=== PATIENT | female | born 1940 | race Caucasian/White ===

== ENCOUNTER 2017-01-13 11:18 | Inpatient (IN) | payer OTHER, MEDICAID ==
[~2017-01-13] VITALS: Ht 162.5 cm; Wt 86.0 kg
[~2017-01-13 11:18] MED LIST: ANTIVERT25 MG PO; COMPAZINE10 MG PO; CORDROL20 MG PO; GLUCOPHAGE850 MG PO; GLYBURIDE2.5 MG PO; LEVAQUIN750 MG PO; LEVOFLOXACIN500 MG PO; LISINOPRIL5 MG PO
[2017-01-13 11:33] VITALS: BP 150/60
[2017-01-13 12:11] LABS: BILIRUBIN NEGATIVE (NEGATIVE); BLOOD NEGATIVE (NEGATIVE); CLARITY CLEAR (CLEAR); COLOR YELLOW (YELLOW); GLUCOSE NEGATIVE (NEGATIVE); KETONE NEGATIVE (NEGATIVE); LEUKO ESTERASE NEGATIVE (NEGATIVE); NITRITE NEGATIVE (NEGATIVE); PH 7.5 (5.0-9.0); SPECIFIC GRAVITY 1.015 (1.005-1.030)
[2017-01-13 12:22] LABS: BACTERIA TRACE; WBC 0-2 wbc/hpf (0-5)
[2017-01-13 12:35] LABS: BASO # 0.1 10*3/uL (0.0-0.1); BASO % 0.8 % (0.0-1.0); EOS # 0.1 10*3/uL (0.0-0.4); EOS % 1.2 % (1.0-4.0); LYMPH # 1.7 10*3/uL (1.3-4.4); LYMPH % 26.1 % (27.0-41.0); MEAN CELL VOLUME 79.6 fl (81.0-99.0); MEAN CORPUSCULAR HGB 24.3 pg (27.0-31.0); MEAN CORPUSCULAR HGB CONC 30.6 g/dl (33.0-37.0); MEAN PLATELET VOLUME 10.9 fl (9.6-12.3); MONO # 0.8 10*3/uL (0.1-1.0); NEUT # 3.8 10*3/uL (2.3-7.9); NEUT % 59.6 % (47.0-73.0); PLATELET COUNT AUTOMATED 255 10*3/uL (130-400); RED BLOOD COUNT 4.52 10*6/uL (4.10-5.10); RED CELL DISTRI WIDTH 17.1 % (0-14.5); WHITE BLOOD COUNT 6.4 10*3/uL (4.8-10.8)
[2017-01-13 12:45] LABS: ACT PARTIAL THROMBO TIME 24.5 SECONDS (20.8-31.5); INTERNATIONAL NORM RATIO 1.1 (2.0-3.5)
[2017-01-13 12:53] LABS: ALBUMIN 3.4 gm/dl (3.1-4.5); ALKALINE PHOSPHATASE 85 U/L (45-117); BUN 15 mg/dl (7-24); CHLORIDE 108 mmol/L (98-107); CREATININE 0.51 mg/dL (0.55-1.02); POTASSIUM 4.1 mmol/L (3.5-5.1); SGOT/AST 13 IU/L (3-35); SGPT/ALT 15 U/L (12-78); SODIUM 143 mmol/L (136-145)
[2017-01-13 12:54] LABS: TROPONIN I < 0.015 ng/ml (<0.045)
--- NOTE | 2017-01-13 13:00 | NUR ---
PT IN ROOM NO DISTRESS NOTED CALL LIGHT IN REACH
--- NOTE | 2017-01-13 13:48 | NUR ---
PT RESTING IN ROOM NO DISTRESS NOTED CALL LIGHT IN REACH
[2017-01-13] MEDS ORDERED: Meclizine25 MG PO (14:37)
[2017-01-13] MEDS ORDERED: Zofran4 MG PO (14:37)
--- NOTE | 2017-01-13 14:48 | NUR ---
RN TYPING DISCHARGE PAPERS DAUGHTER TO DESK AND STATES "SHE IS REALLY NAUSEATED AND DOESN'T FEEL GOOD". DR HEREDIA NOTIFED.
--- NOTE | 2017-01-13 14:48 | NUR ---
PT DAUGHTER IN ROOM WHEN I WAS GETTING READY TO DISCHARGE DAUGHTER CONCERNED PT IS STILL C/O DIZZINESS AND NAUSESA DR HEREDIA NOTIFIED
[2017-01-13 16:00] VITALS: BP 134/60
--- NOTE | 2017-01-13 16:45 | NUR ---
ORTHOSTATICS NEGATIVE
--- NOTE | 2017-01-13 17:17 | NUR ---
Time: 1649 A 76 year old FEMALE admitted to 5E under services of DR. OSWALDO DO,[facility]. Pt. arrived via wheel chair from ER. Chief complaint: DIZZINESS. AMINATA CINTRON
--- NOTE | 2017-01-13 17:22 | NUR ---
PATIENT AWARE OF HER MEDICATIONS AND COULD VERIFY MEDS WITH RN.
[2017-01-13 20:00] VITALS: BP 139/63
[2017-01-14] VITALS: BP 140/72
--- NOTE | 2017-01-14 00:37 | NUR ---
24 HR chart check completed.
[2017-01-14 06:45] LABS: BASO % 0.4 % (0.0-1.0); EOS # 0.3 10*3/uL (0.0-0.4); EOS % 3.5 % (1.0-4.0); HEMATOCRIT 35.9 % (37.0-47.0); HEMOGLOBIN 10.9 g/dl (12.0-16.0); LYMPH # 2.4 10*3/uL (1.3-4.4); LYMPH % 30.3 % (27.0-41.0); MEAN CELL VOLUME 79.4 fl (81.0-99.0); MEAN CORPUSCULAR HGB 24.1 pg (27.0-31.0); MEAN CORPUSCULAR HGB CONC 30.4 g/dl (33.0-37.0); MEAN PLATELET VOLUME 11.3 fl (9.6-12.3); MONO # 0.9 10*3/uL (0.1-1.0); MONO % 10.8 % (3.0-9.0); NEUT # 4.4 10*3/uL (2.3-7.9); NEUT % 54.7 % (47.0-73.0); PLATELET COUNT AUTOMATED 243 10*3/uL (130-400); RED BLOOD COUNT 4.52 10*6/uL (4.10-5.10); RED CELL DISTRI WIDTH 17.2 % (0-14.5)
[2017-01-14 07:18] LABS: ACT PARTIAL THROMBO TIME 24.8 SECONDS (20.8-31.5); INTERNATIONAL NORM RATIO 1.1 (2.0-3.5)
[2017-01-14 07:26] LABS: CHLORIDE 107 mmol/L (98-107); SODIUM 141 mmol/L (136-145)
[2017-01-14 07:42] LABS: BUN 13 mg/dl (7-24); CHOLESTEROL 155 mg/dL (<200); CREATININE 0.47 mg/dL (0.55-1.02); FREE T4 1.23 ng/dl (0.76-1.46); HDL CHOLESTEROL 56 mg/dl (40-60); IRON 37 ug/dL (50-170); LDL CHOLESTEROL 85 mg/dL (9-159); PHOSPHOROUS 3.4 mg/dL (2.5-4.9); THYROID STIM HORMONE (HS) 0.669 uIU/ml (0.358-4.75); TOTAL IRON BINDING CAPACITY 349 ug/dl (250-450); TRIGLYCERIDES 71 mg/dl (<150); VLDL CHOLESTEROL 14 mg/dL (6-40)
[2017-01-14 08:00] VITALS: BP 149/60
[2017-01-14 08:05] LABS: VITAMIN D, 25-HYDROXY 12.8 ng/mL (30-100)
--- NOTE | 2017-01-14 08:30 | NUR ---
Engraver Lettering in to talk to patient. Patient states lives at HOME ALONE IN [place] with NOONE. There are 0 steps in the home. Physician: DR CHACON Pharmacy: [facility] [place] health services: NONE Patient's level of ADLs: MINIMAL ASSIST Patient has working utilities: YES DME: NONE Follow-up physician's appointment after d/c: PREFERS TO MAKE HER OWN APPT Does patient want to access PORTAL?: Discharge plan HOME. JEWELLIONEL STATES DAUGHTER LIVES NEAR BY AND HELPS WHEN NEEDED. CHECKS ON HER FREQ
--- NOTE | 2017-01-14 10:21 | NUR ---
PHYSICAL THERAPY Patient off floor at testing. Aleshia Arenas,PT
--- NOTE | 2017-01-14 10:40 | NUR ---
Patient not available for Occupational Therapy evaluation as she was getting an ultrasound. OTR will recheck at a later time. Barbra Whaley OTR/zack
--- NOTE | 2017-01-14 11:31 | NUR ---
PHYSICAL THERAPY PAtient evaluated on 5, full evaluation to follow. Continue with PT as pr plan of care with fall, vertigo and acute debility precautions. Home with family is patients preference. If home- Recommend 05/10 family assist and home health Rn and PT with vestibular rehab prn. PAtient is moderate complexity via chart review, tests and evaluation: [id number]. Multiple tests pending currently. Thank you for this referral. Aleshia Arenas,PT
[2017-01-14 12:00] VITALS: BP 152/72
[2017-01-14 16:00] VITALS: BP 158/60
[2017-01-14 20:00] VITALS: BP 158/67
[2017-01-15] VITALS: BP 121/48
--- NOTE | 2017-01-15 00:17 | NUR ---
24 HR chart check completed.
[2017-01-15 06:32] LABS: BASO % 0.5 % (0.0-1.0); EOS # 0.3 10*3/uL (0.0-0.4); EOS % 3.6 % (1.0-4.0); HEMATOCRIT 35.6 % (37.0-47.0); HEMOGLOBIN 10.9 g/dl (12.0-16.0); LYMPH # 2.5 10*3/uL (1.3-4.4); LYMPH % 32.7 % (27.0-41.0); MEAN CELL VOLUME 79.1 fl (81.0-99.0); MEAN CORPUSCULAR HGB 24.2 pg (27.0-31.0); MEAN CORPUSCULAR HGB CONC 30.6 g/dl (33.0-37.0); MEAN PLATELET VOLUME 11.4 fl (9.6-12.3); MONO # 0.9 10*3/uL (0.1-1.0); MONO % 11.4 % (3.0-9.0); NEUT % 51.4 % (47.0-73.0); PLATELET COUNT AUTOMATED 250 10*3/uL (130-400); RED CELL DISTRI WIDTH 17.2 % (0-14.5); WHITE BLOOD COUNT 7.7 10*3/uL (4.8-10.8)
[2017-01-15 07:00] LABS: BUN 13 mg/dl (7-24); CHLORIDE 104 mmol/L (98-107); CREATININE 0.49 mg/dL (0.55-1.02); POTASSIUM 3.7 mmol/L (3.5-5.1); SODIUM 141 mmol/L (136-145)
[2017-01-15 08:00] VITALS: BP 130/62
--- NOTE | 2017-01-15 08:13 | NUR ---
PHYSICAL THERAPY seen this AM 1:1 for her therapy treatment. Transfer supine/sit independent, sitting balance X 6 min and just very slight vertigo and cleared. Sit/stand and standing balance CG X 1, no LOB with improvement in vertigo today she said. Followed by gait 125' X 1, CG X 1, one stop/start gait with no LOB. Pt up in her bedside chair, call light. SUE MOSES DINING ROOM CASHIER.
--- NOTE | 2017-01-15 08:15 | NUR ---
MEDIA LAW FACULTY MEMBER VS. PT DOES NOT WANT VNA AND PT AT HOME.
--- NOTE | 2017-01-15 10:48 | NUR ---
PT BGM 157 BUT INSULIN WAS HELD FOR HX OF HYPOGLYCEMIA AND NO HX OF EVER TAKING INSULIN. WILL RECHECK BGM AT 1600 AND CONTINUE WITH SLIDING SCALE IF APPROPRIATE.
[2017-01-15 12:00] VITALS: BP 153/61
[2017-01-15] MEDS ORDERED: GLUCOPHAGE500 MG PO (12:29)
--- NOTE | 2017-01-15 12:40 | NUR ---
PATIENT SEEN 1:1 25 MINUTES THIS DATE. IDENTIFIED PATIENT BY NAME AND DATE OF . PATIENT IN BED UPON ARRIVAL. COMPLETED SUPINE TO SIT EOB SUPERVISION AND MIN VERBAL CUES COMPLETE SLOWLY. PATIENT COMPLETED SIT TO STAND FROM BED CGA AND AMBULATION CGA TO BATHROOM X 2 CGA WITH NO C/O DIZZINESS. COMPLETED STANDING TOLERANCE CGA 2 MINUTES X 1 AND 3 MINUTES X SECOND STAND WITH PATIENT C/O OF SLIGHT DIZZINESS WHEN TURNING HEAD TO THE RIGHT AND DISSIPATION OF DIZZINESS WITH SEATED RB. PATIENT COMPLETED LB DRESSING TASK SEATED EOB MIN A DON NONSLIP SOCKS THIS AND EDUCATION PROPER FOOT WEAR FOR FALL PREVENTION. EDUCATED PATIENT PACING SELF AND PURSE LIP BREATHING WITH BENDING FORWARD REACH B FEET WITH NO C/O DIZZINESS. COMPLETED AMBULATION SHORT DISTANCE TO RECLINER CGA WITH MIN VERBAL CUES PACE SELF. RECOMMENDED IT NETWORK ARCHITECT FOR USE TO P/U ITEMS FROM FLOOR FOR FALL PREVENTION WITH PATIENT VERBALIZING THAT SHE HAS A IT NETWORK ARCHITECT AT HOME. EILEEN FISCHER
--- NOTE | 2017-01-15 15:06 | NUR ---
PHYSICAL THERAPY CO-SIGN I approve of the Phyical Therapy notes written above. HALINA SPENCER PT
--- NOTE | 2017-01-15 15:22 | NUR ---
pt being dc to home. all papers signed for dc. iv access removed. mon removed. waiting for ride. no other concerns at this time.
--- NOTE | 2017-01-15 15:23 | NUR ---
Discharge instructions reviewed with patient/family. Patient receptive and verbalizes understanding. Follow-up care arranged. Written instructions given to patient/family. MANDI BIRCH
--- NOTE | 2017-01-18 08:29 | NUR ---
OCCUPATIONAL THERAPY CO-SIGN I approve of the Occupational Therapy notes written above. OSVALDO YAN OTR/[place]
== END 2017-01-15 16:46 | disposition home or self-care (01) | DRG 149 ==
LOC: ED 11:18 → 5E 15:21 → EDHOLD 15:21 → 5E 15:48
PROVIDERS: Emergency Medicine; Internal Medicine; ADMIT Internal Medicine
DX: H81.10 Benign paroxysmal vertigo, unspecified ear (principal); E87.8 Other disorders of electrolyte and fluid balance, not elsewhere classified; E11.9 Type 2 diabetes mellitus without complications; E66.01 Morbid (severe) obesity due to excess calories; D50.9 Iron deficiency anemia, unspecified; E53.8 Deficiency of other specified B group vitamins; R09.89 Other specified symptoms and signs involving the circulatory and respiratory systems; I10 Essential (primary) hypertension; E55.9 Vitamin D deficiency, unspecified; Z79.84 Long term (current) use of oral hypoglycemic drugs; Z79.899 Other long term (current) drug therapy; Z88.1 Allergy status to other antibiotic agents; Z91.040 Latex allergy status; Z91.013 Allergy to seafood; Z68.32 Body mass index [BMI] 32.0-32.9, adult

== ENCOUNTER → 2017-07-09 | Outpatient (CLI) | payer OTHER, MEDICAID ==
[~2017-07-09] MED LIST changes: +GLUCOPHAGE500 MG PO; +Meclizine25 MG PO; +Zofran4 MG PO
== END | disposition home or self-care (01) ==
LOC: CARD 08:13
DX: R01.1 Cardiac murmur, unspecified (principal)

== ENCOUNTER 2017-08-28 11:50 | Emergency (ER) | payer OTHER, MEDICAID ==
[~2017-08-28] VITALS: Ht 162.5 cm; Wt 88.0 kg
[2017-08-28 12:09] LABS: BASO % 0.4 % (0.0-1.0); EOS # 0.2 10*3/uL (0.0-0.4); EOS % 2.3 % (1.0-4.0); HEMATOCRIT 45.2 % (37.0-47.0); HEMOGLOBIN 15.3 g/dl (12.0-16.0); LYMPH # 1.8 10*3/uL (1.3-4.4); LYMPH % 25.2 % (27.0-41.0); MEAN CELL VOLUME 89.7 fl (81.0-99.0); MEAN CORPUSCULAR HGB 30.4 pg (27.0-31.0); MEAN CORPUSCULAR HGB CONC 33.8 g/dl (33.0-37.0); MEAN PLATELET VOLUME 10.9 fl (9.6-12.3); MONO # 0.7 10*3/uL (0.1-1.0); MONO % 9.2 % (3.0-9.0); NEUT # 4.6 10*3/uL (2.3-7.9); NEUT % 62.5 % (47.0-73.0); PLATELET COUNT AUTOMATED 248 10*3/uL (130-400); RED BLOOD COUNT 5.04 10*6/uL (4.10-5.10); RED CELL DISTRI WIDTH 12.5 % (0-14.5); WHITE BLOOD COUNT 7.3 10*3/uL (4.8-10.8)
[2017-08-28 12:25] LABS: ALBUMIN 3.5 gm/dl (3.1-4.5); ALKALINE PHOSPHATASE 81 U/L (45-117); BUN 14 mg/dl (7-24); CHLORIDE 109 mmol/L (98-107); CREATININE 0.62 mg/dL (0.55-1.02); POTASSIUM 3.8 mmol/L (3.5-5.1); SGOT/AST 14 IU/L (3-35); SGPT/ALT 17 U/L (12-78); SODIUM 143 mmol/L (136-145)
[2017-08-28 12:29] LABS: TROPONIN I < 0.015 ng/ml (<0.045)
[2017-08-28 12:43] LABS: CLARITY CLEAR (CLEAR); COLOR YELLOW (YELLOW); GLUCOSE NEGATIVE (NEGATIVE)
[2017-08-28 12:44] LABS: BILIRUBIN NEGATIVE (NEGATIVE); KETONE NEGATIVE (NEGATIVE); SPECIFIC GRAVITY 1.005 (1.005-1.030)
[2017-08-28 12:45] LABS: BLOOD NEGATIVE (NEGATIVE); UROBILINOGEN 0.2 E.U./dl (0.2-1.0)
[2017-08-28 12:46] LABS: LEUKO ESTERASE NEGATIVE (NEGATIVE); NITRITE NEGATIVE (NEGATIVE)
[2017-08-28 12:59] VITALS: BP 125/62
== END 2017-08-28 13:50 | disposition home or self-care (01) ==
LOC: ED 11:50
PROVIDERS: Nurse Practitioner Family
DX: H81.10 Benign paroxysmal vertigo, unspecified ear (principal); E11.9 Type 2 diabetes mellitus without complications; I10 Essential (primary) hypertension; E66.01 Morbid (severe) obesity due to excess calories; Z68.33 Body mass index [BMI] 33.0-33.9, adult; Z90.710 Acquired absence of both cervix and uterus; Z90.49 Acquired absence of other specified parts of digestive tract; Z79.899 Other long term (current) drug therapy; Z91.013 Allergy to seafood; Z91.09 Other allergy status, other than to drugs and biological substances

== ENCOUNTER 2019-10-27 08:06 | Observation (INO) | payer OTHER, MEDICAID ==
[~2019-10-27] VITALS: Ht 165.1 cm; Wt 91.3 kg
[2019-10-27 08:07] VITALS: BP 139/73
[2019-10-27 08:55] LABS: BASO % 0.5 % (0.0-1.0); EOS # 0.2 10*3/uL (0.0-0.4); EOS % 2.2 % (1.0-4.0); LYMPH # 1.2 10*3/uL (1.3-4.4); LYMPH % 14.3 % (27.0-41.0); MEAN CELL VOLUME 89.8 fl (81.0-99.0); MEAN CORPUSCULAR HGB 29.1 pg (27.0-31.0); MEAN CORPUSCULAR HGB CONC 32.4 g/dl (33.0-37.0); MEAN PLATELET VOLUME 10.9 fl (9.6-12.3); MONO # 0.7 10*3/uL (0.1-1.0); MONO % 8.1 % (3.0-9.0); NEUT # 6.3 10*3/uL (2.3-7.9); NEUT % 74.4 % (47.0-73.0); PLATELET COUNT AUTOMATED 189 10*3/uL (130-400); RED BLOOD COUNT 5.12 10*6/uL (4.10-5.10); RED CELL DISTRI WIDTH 12.9 % (0-14.5); WHITE BLOOD COUNT 8.5 10*3/uL (4.8-10.8)
--- NOTE | 2019-10-27 09:03 | NUR ---
ODESSA REPORTS IMPROVEMENT OF DIZZINESS WITH MEDICATION ADMINISTRATION
[2019-10-27 09:18] LABS: ALBUMIN 3.5 gm/dl (3.1-4.5); ALKALINE PHOSPHATASE 65 U/L (45-117); BUN 24 mg/dl (7-24); CHLORIDE 109 mmol/L (98-107); CREATININE 0.63 mg/dL (0.55-1.02); POTASSIUM 4.1 mmol/L (3.5-5.1); SGOT/AST 15 IU/L (3-35); SGPT/ALT 18 U/L (12-78); SODIUM 141 mmol/L (136-145); TOTAL PROTEIN 7.1 gm/dL (6.4-8.2)
[2019-10-27 09:43] LABS: CLARITY CLEAR (CLEAR); COLOR YELLOW (YELLOW)
[2019-10-27 09:46] LABS: BILIRUBIN 1+ (NEGATIVE); BLOOD TRACE-INTACT (NEGATIVE); GLUCOSE NEGATIVE (NEGATIVE); KETONE 2+ (NEGATIVE)
[2019-10-27 09:47] LABS: BACTERIA TRACE; LEUKO ESTERASE NEGATIVE (NEGATIVE); NITRITE NEGATIVE (NEGATIVE); UROBILINOGEN 0.2 E.U./dl (0.2-1.0)
[2019-10-27 09:48] LABS: MUCOUS 2+
--- NOTE | 2019-10-27 13:03 | NUR ---
PATIENT REPORTS IMPROVEMENT OF NAUSEA WITH MEDICATION
--- NOTE | 2019-10-27 14:38 | NUR ---
PT IS A HARD STICK, ATTEMPTS MADE. PER DR NEVES PT DOES NOT NEED AN IV AT THIS TIME.
[2019-10-27 14:49] VITALS: BP 149/66
--- NOTE | 2019-10-27 14:50 | NUR ---
ASSISTED PT TO BEDSIDE COMMODE. GAIT STEADY. C/O DIZZINESS.
[2019-10-27 15:21] LABS: BASO % 0.3 % (0.0-1.0); EOS # 0.1 10*3/uL (0.0-0.4); EOS % 1.3 % (1.0-4.0); HEMATOCRIT 45.8 % (37.0-47.0); LYMPH # 1.9 10*3/uL (1.3-4.4); LYMPH % 21.6 % (27.0-41.0); MEAN CELL VOLUME 91.4 fl (81.0-99.0); MEAN CORPUSCULAR HGB 29.3 pg (27.0-31.0); MEAN CORPUSCULAR HGB CONC 32.1 g/dl (33.0-37.0); MEAN PLATELET VOLUME 10.9 fl (9.6-12.3); MONO # 0.8 10*3/uL (0.1-1.0); MONO % 8.9 % (3.0-9.0); NEUT # 5.8 10*3/uL (2.3-7.9); NEUT % 67.4 % (47.0-73.0); PLATELET COUNT AUTOMATED 191 10*3/uL (130-400); RED BLOOD COUNT 5.01 10*6/uL (4.10-5.10); RED CELL DISTRI WIDTH 13.2 % (0-14.5); WHITE BLOOD COUNT 8.6 10*3/uL (4.8-10.8)
[2019-10-27 15:37] LABS: ALBUMIN 3.2 gm/dl (3.1-4.5); ALKALINE PHOSPHATASE 63 U/L (45-117); BUN 20 mg/dl (7-24); CHLORIDE 109 mmol/L (98-107); CREATININE 0.53 mg/dL (0.55-1.02); POTASSIUM 4.1 mmol/L (3.5-5.1); SGOT/AST 16 IU/L (3-35); SGPT/ALT 19 U/L (12-78); SODIUM 143 mmol/L (136-145); TOTAL PROTEIN 7.1 gm/dL (6.4-8.2)
[2019-10-27 15:39] LABS: TROPONIN I < 0.015 ng/ml (<0.045)
[2019-10-27 15:45] VITALS: BP 135/69
--- NOTE | 2019-10-27 15:45 | NUR ---
Time: 1544 A 79 year old FEMALE admitted to 4E under services of DR. OSWALDO DO,GHULAM. Pt. arrived via stretcher from ER. Chief complaint: DIZZINESS, NAUSEA AND VOMITING. EFREM WHEELERN, RN
[2019-10-27 16:00] VITALS: BP 135/69
[2019-10-27] MEDS ORDERED: METFORMIN HCL1000 M2 PO (16:08)
[2019-10-27] MEDS ORDERED: POTASSIUM CHLO10 ME4 PO (16:09)
[2019-10-27] MEDS ORDERED: TRADJENTA5 M1 PO (16:09)
[2019-10-27] MEDS ORDERED: MECLIZINE HCL25 M2 PO (16:10)
[2019-10-27 20:00] VITALS: BP 146/87
--- NOTE | 2019-10-27 20:10 | NUR ---
AAOX3. ASSISTED UP TO BSC DUE TO PATIENT C/O BEING DIZZY. BACK TO BED WITH ASSIST OF 1. BED ALARM PUT BACK ON & CALL LIGHT WITHIN REACH.
--- NOTE | 2019-10-27 22:00 | NUR ---
BLOOD SUGAR 116; NO COVERAGE REQUIRED.
[2019-10-28] VITALS: BP 105/57
--- NOTE | 2019-10-28 05:14 | NUR ---
MEDICATED WITH TYLENOL FOR C/O HEADACHE.
--- NOTE | 2019-10-28 06:23 | NUR ---
BLOOD SUGAR 101.
[2019-10-28 06:27] LABS: BASO % 0.5 % (0.0-1.0); EOS # 0.3 10*3/uL (0.0-0.4); EOS % 3.3 % (1.0-4.0); HEMATOCRIT 44.6 % (37.0-47.0); LYMPH # 1.8 10*3/uL (1.3-4.4); LYMPH % 22.2 % (27.0-41.0); MEAN CORPUSCULAR HGB 29.2 pg (27.0-31.0); MEAN CORPUSCULAR HGB CONC 32.1 g/dl (33.0-37.0); MEAN PLATELET VOLUME 11.2 fl (9.6-12.3); MONO # 0.9 10*3/uL (0.1-1.0); MONO % 10.6 % (3.0-9.0); NEUT # 5.2 10*3/uL (2.3-7.9); PLATELET COUNT AUTOMATED 190 10*3/uL (130-400); RED CELL DISTRI WIDTH 12.9 % (0-14.5); WHITE BLOOD COUNT 8.2 10*3/uL (4.8-10.8)
[2019-10-28 06:49] LABS: ALBUMIN 3.2 gm/dl (3.1-4.5); BUN 21 mg/dl (7-24); CHLORIDE 109 mmol/L (98-107); CHOLESTEROL 155 mg/dL (<200); CREATININE 0.63 mg/dL (0.55-1.02); POTASSIUM 3.8 mmol/L (3.5-5.1); SGOT/AST 16 IU/L (3-35); SODIUM 139 mmol/L (136-145); TOTAL PROTEIN 6.5 gm/dL (6.4-8.2); TRIGLYCERIDES 103 mg/dl (<150); VLDL CHOLESTEROL 21 mg/dL (6-40)
[2019-10-28 06:56] LABS: ALKALINE PHOSPHATASE 58 U/L (45-117); HDL CHOLESTEROL 46 mg/dl (40-60); LDL CHOLESTEROL 88 mg/dL (9-159); SGPT/ALT 17 U/L (12-78); THYROID STIM HORMONE (HS) 0.948 uIU/ml (0.358-4.75)
--- NOTE | 2019-10-28 07:00 | NUR ---
ARRIVED ON SHIFT, REPORT RECEIVED FROM OFFGOING NURSE, ASSUMED CARE OF PATIENT.
[2019-10-28 07:04] LABS: ACT PARTIAL THROMBO TIME 27.9 SECONDS (20.0-32.1); INTERNATIONAL NORM RATIO 1.2 (2.0-3.5)
--- NOTE | 2019-10-28 07:11 | NUR ---
Shift chart check completed.
--- NOTE | 2019-10-28 07:28 | NUR ---
INTRODUCED SELF TO PATIENT, BED IN LOW POSITION, WHEEL LOCKS ENGAGED, SIDE RAILS UP X 2 FOR TURNING AND REPOSITIONING, BED ALARM ON, CALL LIGHT WITHIN REACH, NO NEEDS VOICED AT THIS TIME. WHITE BOARD UPDATED.
[2019-10-28 07:30] LABS: VITAMIN D, 25-HYDROXY 59.2 ng/mL (30-100)
[2019-10-28 08:00] VITALS: BP 94/58
--- NOTE | 2019-10-28 09:42 | NUR ---
PATIENT C/O DIZZINESS MEDICATED WITH ANTIVERT ORDERED PRN.
--- NOTE | 2019-10-28 10:41 | NUR ---
FOLLOW UP ON ANTIVERT GIVEN X 1 HOUR AGO, PATIENT REPORTS DECREASED DIZZINESS AT THIS TIME.
--- NOTE | 2019-10-28 11:14 | NUR ---
Java Developer Architect in to talk to patient. Patient states lives at with HOME ALONE IN HER APARTMENT. There are 0 steps in the home. Physician: DR. CHACON, DR. BROWN, DR. SENIOR Pharmacy: [facility] Home health services: NONE Patient's level of ADLs: INDEPENDENT Patient has working utilities: YES DME: USES CANE TO AMBULATE Follow-up physician's appointment after d/c: WILL FOLLOW WITH DR. CHACON, DR. BROWN AND DR. SENIOR Does patient want to access PORTAL?: YES, DAUGHTER ASSISTS Discharge plan PT. STATES THAT SHE WILL RETURN HOME AT DISCHARGE. SHE IS INDEPENDENT AND HAS NO HOMECARE NEEDS. PT. STILL DRIVES AND IS ABLE TO GO TO HER FOLLOW UP APPOINTMENTS. DECLINES NEED FOR HOME HEALTH OR HOME CARE SERVICES AT DISCHARGE. ALFREDO SUMMERS LPN
[2019-10-28 12:00] VITALS: BP 103/69
[2019-10-28 16:00] VITALS: BP 92/50
[2019-10-28 20:00] VITALS: BP 123/69
--- NOTE | 2019-10-28 22:00 | NUR ---
BLOOD SUGAR 123; NO COVERAGE REQUIRED.
[2019-10-29] VITALS: BP 115/55
[2019-10-29 06:54] LABS: BUN 19 mg/dl (7-24); CHLORIDE 109 mmol/L (98-107); POTASSIUM 3.6 mmol/L (3.5-5.1); SODIUM 140 mmol/L (136-145)
--- NOTE | 2019-10-29 07:00 | NUR ---
ARRIVED ON SHIFT, REPORT RECEIVED FROM OFF GOING NURSE, ASSUMED CARE OF PATIENT.
--- NOTE | 2019-10-29 07:30 | NUR ---
INTRODUCED SELF TO PATIENT, BED IN LOW POSITION WITH WHEEL LOCKS ENGAGED, SIDE RAILS UP X 2 FOR TURNING AND REPOSITIONING, CALL LIGHT WITHIN REACH, NO NEEDS VOICED AT THIS TIME, WHITE BOARD UPDATED.
[2019-10-29 08:00] VITALS: BP 124/62
[2019-10-29 12:00] VITALS: BP 127/86
--- NOTE | 2019-10-29 13:18 | NUR ---
Shift chart check completed.
[2019-10-29 16:00] VITALS: BP 115/61
[2019-10-29] MEDS ORDERED: AVPAK AZITHROM250 M1 PO (16:05)
--- NOTE | 2019-10-29 16:50 | NUR ---
Discharge instructions reviewed with patient/family. Patient receptive and verbalizes understanding. Follow-up care arranged. Written instructions given to patient/family, IV REMOVED, TAKEN OUT VIA W/C BY NOELLE. EFREM WHEELER
== END 2019-10-29 17:23 | disposition home or self-care (01) ==
LOC: ED 08:06 → EDHOLD 14:25 → 4E 15:08
PROVIDERS: Emergency Medicine; Internal Medicine; ADMIT Internal Medicine
DX: H83.09 Labyrinthitis, unspecified ear (principal); R26.2 Difficulty in walking, not elsewhere classified; R42 Dizziness and giddiness; E87.8 Other disorders of electrolyte and fluid balance, not elsewhere classified; R11.2 Nausea with vomiting, unspecified; R17 Unspecified jaundice; E11.65 Type 2 diabetes mellitus with hyperglycemia; I10 Essential (primary) hypertension; E66.01 Morbid (severe) obesity due to excess calories; E53.8 Deficiency of other specified B group vitamins; E55.9 Vitamin D deficiency, unspecified; I51.7 Cardiomegaly; K57.90 Diverticulosis of intestine, part unspecified, without perforation or abscess without bleeding; M65.311 Trigger thumb, right thumb

== ENCOUNTER 2020-02-29 17:27 | Inpatient (IN) | payer OTHER, MEDICAID ==
[~2020-02-29] VITALS: Ht 162.6 cm; Wt 88.0 kg
[~2020-02-29 17:27] MED LIST changes: -Carafate1 GM PO; -ELIQUIS5 M1 PO; -FLAGYL500 MG PO; -METOCLOPRAM5 MG/1 ML PO; -METOPROLOL TART50 M1 PO; -ONDANSETRON HYDR4 M1 PO; -PENTASA250 MG PO; -PROTONIX40 M1 IV; -PROTONIX40 M1 PO; -VITAMIN B122500 MC1 PO; -VITAMIN D3125 MC1 PO
[2020-02-29 17:54] VITALS: BP 90/30
[2020-02-29 18:02] LABS: HEMATOCRIT 46.5 % (37.0-47.0); MEAN CELL VOLUME 89.6 fl (81.0-99.0); MEAN CORPUSCULAR HGB 29.5 pg (27.0-31.0); MEAN CORPUSCULAR HGB CONC 32.9 g/dl (33.0-37.0); MEAN PLATELET VOLUME 11.2 fl (9.6-12.3); PLATELET COUNT AUTOMATED 296 10*3/uL (130-400); RED BLOOD COUNT 5.19 10*6/uL (4.10-5.10); RED CELL DISTRI WIDTH 12.7 % (0-14.5); WHITE BLOOD COUNT 18.4 10*3/uL (4.8-10.8)
[2020-02-29 18:09] VITALS: BP 105/63
[2020-02-29 18:13] LABS: ACT PARTIAL THROMBO TIME 26.5 SECONDS (20.0-32.1); INTERNATIONAL NORM RATIO 1.3 (2.0-3.5)
[2020-02-29 18:18] LABS: ALBUMIN 3.1 gm/dl (3.1-4.5); ALKALINE PHOSPHATASE 74 U/L (45-117); BUN 14 mg/dl (7-24); CHLORIDE 105 mmol/L (98-107); CREATININE 0.87 mg/dL (0.55-1.02); POTASSIUM 3.2 mmol/L (3.5-5.1); SGOT/AST 18 IU/L (3-35); SGPT/ALT 14 U/L (12-78); SODIUM 138 mmol/L (136-145); TOTAL PROTEIN 6.7 gm/dL (6.4-8.2)
[2020-02-29 18:19] LABS: TROPONIN I < 0.015 ng/ml (<0.045)
[2020-02-29 18:20] VITALS: BP 108/76
[2020-02-29 18:21] LABS: TOTAL CELLS COUNTED 100 #CELLS
[2020-02-29 18:22] LABS: BURR CELLS MODERATE; PLATELET SUFFICIENCY NORMAL (NORMAL)
[2020-02-29 18:35] VITALS: BP 117/69
[2020-02-29 18:50] VITALS: BP 96/35
--- NOTE | 2020-02-29 19:11 | NUR ---
PATIENT TO CT AT THIS TIME
[2020-02-29 21:56] LABS: BILIRUBIN Negative (Negative); BLOOD 1+ (Negative); CLARITY Clear (Clear); COLOR Yellow (Yellow); GLUCOSE Negative (Negative); KETONE 3+ (Negative); LEUKO ESTERASE Negative (Negative); NITRITE Negative (Negative); PH 5.5 (4.5-8.0); SPECIFIC GRAVITY >= 1.030 (1.001-1.030); UROBILINOGEN 0.2 E.U./dl (0.0-1.0)
[2020-02-29 22:01] LABS: BACTERIA 1+
--- NOTE | 2020-02-29 22:52 | NUR ---
PATIENT UP TO BEDSIDE COMMODE WITHOUT DIFFICULTY. GIVEN NON SKID SOCKS. PATIEN ASSISTED BACK INTO BED FOR COMFORT AND CCM IN PLACE.
[2020-02-29 23:15] VITALS: BP 124/63
--- NOTE | 2020-02-29 23:15 | NUR ---
PTS IV SITE ON LAC WAS INFILTRATED. IV WAS TAKEN OUT.
--- NOTE | 2020-02-29 23:22 | NUR ---
DR. WEBER CALLED ON BEHALF OF DR. CHACON TO INFORM HIM OF CRITICAL LACTIC ACID CALLED BY LAB. LACTIC ACID HAS INCREASED DESPITE RECEIVING 1 LITER OF NORMAL SALINE. VERBAL ORDER DR. WEBER FOR 2ND LITER OF NS @ 100 /ML HR.
[2020-03-01] VITALS (9 sets, daily range): BP systolic 133–156; BP diastolic 39–95
--- NOTE | 2020-03-01 00:03 | NUR ---
PT WITH X1 ASSIST TO BEDSIDE COMMODE. PT WITH DIARRHEA STILL. PT PUT BACK IN BED AND GIVEN CALL LIGHT.
--- NOTE | 2020-03-01 00:05 | NUR ---
IV FLUIDS STARTED AT 80MLS/HR. FLUIDS WOULD NOT SCAN.
--- NOTE | 2020-03-01 00:52 | NUR ---
PT ASSISTED TO BEDSIDE COMMODE
--- NOTE | 2020-03-01 02:07 | NUR ---
PT WITH X1 ASSIST TO BEDSIDE COMMODE.
--- NOTE | 2020-03-01 03:52 | NUR ---
PT RESTING IN BED. NO ACUTE DISTRESS. SIDERAILS UP X2. CALL LIGHT WITHIN REACH
--- NOTE | 2020-03-01 06:01 | NUR ---
PT UP TO USE BEDSIDE COMMODE. NO DIARRHEA AT THIS TIME. STATES HER NAUSEA IS SLIGHTLY BETTER
--- NOTE | 2020-03-01 09:00 | NUR ---
CONSULTED , ORDERS VIA DESIREE PT TO BE NPO, STOOL COLLECTION FOR C-DIFF CULTURE AND OVA PARASITE, TAP WATER EMEMA AFTER, EGD/COLO THIS AFTERNOON.
--- NOTE | 2020-03-01 14:00 | NUR ---
A 79, admitted to , under the services of GHULAM Fry MD with a diagnosis of GASTROENTERITIS/COLOITIS. Chief complaint is BD PAIN/ NAUSEA VOMITING. Patient arrived via wheel chair from ER. Monitor applied. Initial assessment completed. Vital signs taken and recorded. GHULAM FRY MD notified of admission to the unit. Orders received. See assessment for past medical history, medications and allergies. Patient and/or family oriented to unit. [facility] visitation policy reviewed. Clothing/patient valuable form completed. EFREM WHEELER
--- NOTE | 2020-03-01 14:45 | NUR ---
Clinical Resource Coordinator in to talk to patient. Patient states lives at home alone with her daughter checking in on her. There are 0 steps in the home. Physician: Dr. Jasmeet Sneed Pharmacy: [facility] Home health services: none Patient's level of ADLs: minimal assistance Patient has working utilities: yes DME: rollator Follow-up physician's appointment after d/c: she prefers to make her own follow up appt after discharge Does patient want to access PORTAL?: no Discharge plan discussed with patient. She lives at home alone with her daughter checking in on her. 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 She is independent in her ADLs and uses a rollator for ambulation. Discussed home health care services and she declines. CM will continue to follow for any discharge planning needs. When medically stable she will be discharged to home. She states her daughter, Karoline, will provide transportation on discharge. DAMION GUTIERREZ
[2020-03-01] MEDS ORDERED: ONDANSETRON HYDR4 M1 PO (14:56)
[2020-03-01] MEDS ORDERED: VITAMIN B122500 MC1 PO (14:58)
[2020-03-01] MEDS ORDERED: VITAMIN D3125 MC1 PO (14:59)
--- NOTE | 2020-03-01 15:00 | NUR ---
PATIENT TAKEN OFF FLOOR FOR EGD SHORTLY AFTER ARRIVING TO FLOOR.
[2020-03-01 16:52] LABS: HEMATOCRIT 48.1 % (37.0-47.0); MEAN CORPUSCULAR HGB 29.1 pg (27.0-31.0); MEAN CORPUSCULAR HGB CONC 31.2 g/dl (33.0-37.0); MEAN PLATELET VOLUME 10.9 fl (9.6-12.3); PLATELET COUNT AUTOMATED 287 10*3/uL (130-400); RED BLOOD COUNT 5.16 10*6/uL (4.10-5.10); RED CELL DISTRI WIDTH 13.1 % (0-14.5); WHITE BLOOD COUNT 22.8 10*3/uL (4.8-10.8)
[2020-03-01 17:01] LABS: MEAN CELL VOLUME 93.2 fl (81.0-99.0)
[2020-03-01 17:09] LABS: ALBUMIN 2.6 gm/dl (3.1-4.5); ALKALINE PHOSPHATASE 66 U/L (45-117); BUN 16 mg/dl (7-24); CHLORIDE 112 mmol/L (98-107); CREATININE 0.75 mg/dL (0.55-1.02); POTASSIUM 3.8 mmol/L (3.5-5.1); SGOT/AST 30 IU/L (3-35); SGPT/ALT 17 U/L (12-78); SODIUM 141 mmol/L (136-145); TOTAL PROTEIN 6.3 gm/dL (6.4-8.2)
[2020-03-01 17:12] LABS: BURR CELLS MODERATE; TOTAL CELLS COUNTED 100 #CELLS
--- NOTE | 2020-03-01 18:55 | NUR ---
PATIENT RETURNED TO FLOOR FOLLOWING EGD.
--- NOTE | 2020-03-01 19:35 | NUR ---
REPORT RECEIVED. PT LYING IN BED. NO COMPLAINTS
--- NOTE | 2020-03-01 22:00 | NUR ---
IN TO SEE PT AND PASS MEDICATIONS. VOICES NO COMPLAINTS. CALL LIGHT IN REACH
--- NOTE | 2020-03-01 22:56 | NUR ---
DR. JULIEN NOTIFIED OF PT AFIB 118-120'S ON CM. STATED THAT HE WOULD PUT ORDER IN.
--- NOTE | 2020-03-01 23:30 | NUR ---
SPOKE WITH DR. CHACON ABOUT PT HR. ORDERED TO CONSULT DR. SENIOR, ORDER ECHO FOR WEDNESDAY AND TSH LEVEL IN AM. NO OTHER ORDERS AT THIS TIME
[2020-03-02] VITALS: BP 129/80
--- NOTE | 2020-03-02 | NUR ---
ONE TIME DOSE IV LOPRESSOR GIVEN. WILL MONITOR
--- NOTE | 2020-03-02 01:00 | NUR ---
PT HR 100-[address] WEBER NOTIFIED
--- NOTE | 2020-03-02 03:00 | NUR ---
PT SLEEPING, RESPIRATIONS EASY AND UNLABORED.
[2020-03-02 06:37] LABS: HEMATOCRIT 44.9 % (37.0-47.0); MEAN CELL VOLUME 91.6 fl (81.0-99.0); MEAN CORPUSCULAR HGB 29.6 pg (27.0-31.0); MEAN CORPUSCULAR HGB CONC 32.3 g/dl (33.0-37.0); MEAN PLATELET VOLUME 10.6 fl (9.6-12.3); PLATELET COUNT AUTOMATED 303 10*3/uL (130-400); RED CELL DISTRI WIDTH 13.6 % (0-14.5); WHITE BLOOD COUNT 24.4 10*3/uL (4.8-10.8)
--- NOTE | 2020-03-02 06:54 | NUR ---
MESSAGE LEFT WITH [facility]SWERING [facility]
[2020-03-02 07:02] LABS: BUN 14 mg/dl (7-24); CHLORIDE 111 mmol/L (98-107); CREATININE 0.65 mg/dL (0.55-1.02); POTASSIUM 4.2 mmol/L (3.5-5.1); SODIUM 142 mmol/L (136-145)
--- NOTE | 2020-03-02 07:02 | NUR ---
GE GAVE ORDERS.
[2020-03-02 07:08] LABS: THYROID STIM HORMONE (HS) 0.338 uIU/ml (0.358-4.75)
[2020-03-02 09:00] VITALS: BP 132/76
[2020-03-02 09:06] LABS: ACANTHOCYTES FEW; BURR CELLS MODERATE; PLATELET SUFFICIENCY NORMAL (NORMAL); TOTAL CELLS COUNTED 100 #CELLS
[2020-03-02 12:00] VITALS: BP 116/42
[2020-03-02 16:00] VITALS: BP 99/52
--- NOTE | 2020-03-02 19:35 | NUR ---
REPORT RECEIVED. PT WATCHING TV
[2020-03-02 20:00] VITALS: BP 118/74
--- NOTE | 2020-03-02 22:00 | NUR ---
IN TO SEE PT. PT SLEEPING
[2020-03-03] VITALS: BP 104/74
--- NOTE | 2020-03-03 01:00 | NUR ---
PT SLEEPING. IVF INFUSING WITHOUT DIFFICULTY
--- NOTE | 2020-03-03 04:00 | NUR ---
IN TO SEE PT. RESPIRATIONS EASY. IVF INFUSING WITHOUT DIFFICULTY
[2020-03-03 07:26] LABS: BASO # 0.1 10*3/uL (0.0-0.1); BASO % 0.4 % (0.0-1.0); EOS # 0.1 10*3/uL (0.0-0.4); EOS % 0.4 % (1.0-4.0); HEMATOCRIT 42.5 % (37.0-47.0); LYMPH # 1.8 10*3/uL (1.3-4.4); LYMPH % 9.2 % (27.0-41.0); MEAN CELL VOLUME 90.2 fl (81.0-99.0); MEAN CORPUSCULAR HGB 29.5 pg (27.0-31.0); MEAN CORPUSCULAR HGB CONC 32.7 g/dl (33.0-37.0); MEAN PLATELET VOLUME 10.5 fl (9.6-12.3); MONO # 1.4 10*3/uL (0.1-1.0); MONO % 6.9 % (3.0-9.0); NEUT # 16.2 10*3/uL (2.3-7.9); NEUT % 81.8 % (47.0-73.0); PLATELET COUNT AUTOMATED 313 10*3/uL (130-400); RED BLOOD COUNT 4.71 10*6/uL (4.10-5.10); RED CELL DISTRI WIDTH 13.6 % (0-14.5); WHITE BLOOD COUNT 19.8 10*3/uL (4.8-10.8)
[2020-03-03 07:34] LABS: ALBUMIN 2.1 gm/dl (3.1-4.5); BUN 15 mg/dl (7-24); CHLORIDE 107 mmol/L (98-107); CREATININE 0.55 mg/dL (0.55-1.02); POTASSIUM 3.3 mmol/L (3.5-5.1); SGOT/AST 15 IU/L (3-35); SGPT/ALT 12 U/L (12-78); SODIUM 136 mmol/L (136-145)
[2020-03-03 07:35] LABS: ALKALINE PHOSPHATASE 49 U/L (45-117)
[2020-03-03 08:00] VITALS: BP 158/86
--- NOTE | 2020-03-03 08:15 | NUR ---
DR. HARRIS IN TO SEE PATIENT RE: PLAN OF CARE, IS ORDERING STRESS TEST FOR TOMORROW DUE TO PATIENT'S AFIB IS OF NEW ONSET.
[2020-03-03 09:00] VITALS: BP 118/74
[2020-03-03 12:00] VITALS: BP 138/86; BP 150/80
[2020-03-03 16:00] VITALS: BP 120/70
--- NOTE | 2020-03-03 19:20 | NUR ---
REPORT RECEIVED. PT SLEEPING
[2020-03-03 20:00] VITALS: BP 105/56
--- NOTE | 2020-03-03 21:00 | NUR ---
IV SITE SYMPTOMATIC PER PT. DISCONTINUED AT THIS TIME. NEW IV IN RIGHT ANTECUBITAL PER CYNTHIA BLAKELY. IVF INFUSING AT THIS TIME
[2020-03-04] VITALS: BP 102/70
--- NOTE | 2020-03-04 | NUR ---
PT SLEEPING AT THIS TIME. IV POTASSIUM PHOS INFUSING WITHOUT DIFFICULTY. CALL LIGHT IN REACH OF PT
--- NOTE | 2020-03-04 04:44 | NUR ---
DR. CHACON NOTIFIED OF PT [address] OF [facility]. ORDERS FOR LABS RECEIVED. ALSO STATED TO CALL DR. HARRIS.
--- NOTE | 2020-03-04 04:44 | NUR ---
DR. HARRIS NOTIFIED OF PT [address] OF [facility]. NO ORDERS.
--- NOTE | 2020-03-04 06:00 | NUR ---
IN TO SEE PT, PT SLEEPING AT THIS TIME
[2020-03-04 06:44] LABS: BASO # 0.1 10*3/uL (0.0-0.1); BASO % 0.5 % (0.0-1.0); EOS # 0.1 10*3/uL (0.0-0.4); EOS % 0.3 % (1.0-4.0); HEMATOCRIT 43.4 % (37.0-47.0); LYMPH # 1.8 10*3/uL (1.3-4.4); LYMPH % 10.9 % (27.0-41.0); MEAN CELL VOLUME 90.8 fl (81.0-99.0); MEAN CORPUSCULAR HGB 29.3 pg (27.0-31.0); MEAN CORPUSCULAR HGB CONC 32.3 g/dl (33.0-37.0); MEAN PLATELET VOLUME 10.9 fl (9.6-12.3); MONO # 1.3 10*3/uL (0.1-1.0); MONO % 7.7 % (3.0-9.0); NEUT # 13.2 10*3/uL (2.3-7.9); NEUT % 79.5 % (47.0-73.0); PLATELET COUNT AUTOMATED 321 10*3/uL (130-400); RED BLOOD COUNT 4.78 10*6/uL (4.10-5.10); RED CELL DISTRI WIDTH 13.6 % (0-14.5); WHITE BLOOD COUNT 16.6 10*3/uL (4.8-10.8)
[2020-03-04 07:48] LABS: ALKALINE PHOSPHATASE 51 U/L (45-117); BUN 14 mg/dl (7-24); CHLORIDE 108 mmol/L (98-107); CREATININE 0.55 mg/dL (0.55-1.02); POTASSIUM 4.1 mmol/L (3.5-5.1); SGOT/AST 12 IU/L (3-35); SGPT/ALT 12 U/L (12-78); SODIUM 139 mmol/L (136-145); TOTAL PROTEIN 5.1 gm/dL (6.4-8.2)
[2020-03-04 08:00] VITALS: BP 110/64
--- NOTE | 2020-03-04 09:00 | NUR ---
CM in to see patient. No new needs or request at this time. Discussed home health care services and she declines. CM will continue to follow for any discharge planning needs. When medically stable she will be discharged to home.
[2020-03-04 12:00] VITALS: BP 107/60
--- NOTE | 2020-03-04 12:20 | NUR ---
PATIENT TO CARDIAC REHAB BY WHEELCHAIR FOR STRESS TEST AT THIS TIME.
--- NOTE | 2020-03-04 13:08 | NUR ---
INFORMED SIGNED CONSENT OBTAINED FOR LEXISCAN STRESS TEST WITH DR CHACON. RESTING EKG AFIB HR 108. PULSE OX 96% LUNGS CLEARLY DIMINISHED. PT COMPLETED ONE MINUTE OF A LEXISCAN PROTOCOL WITH PT RECEIVING LEXISCAN 0.4MG IV OVER 10 SECONDS. NO ARRHYTYMIAS OR STR CHANGES NOTED. PT REMAINED IN AFIB. PT C/O A WIERD FEELING WITH INJECTION, ABDOMINAL CRAMPING AND LIGHTHEADED. POST TEST PT SYMPTOMS RESOLVED. LAST RECOVERY HR OF 136 BP 126/80. PT IN STABLE CONDITION, AWAITING NUCLEAR IMAGES.
--- NOTE | 2020-03-04 15:15 | NUR ---
PATIENT RETURNED FROM STRESS TEST, RESUMING MEDS AND DIET.
[2020-03-04 16:00] VITALS: BP 140/47
[2020-03-04 20:00] VITALS: BP 124/77
--- NOTE | 2020-03-04 21:18 | NUR ---
NOTIFIED OF PATIENT'S C/O NAUSEA/VOMITING FROM COLO PREP. NEW ORDERS TO FOLLOW FOR SUNITHA.
--- NOTE | 2020-03-04 21:28 | NUR ---
IV ZOFRAN GIVEN FOR C/O NAUSEA. WILL MONITOR. CALL LIGHT IN REACH.
--- NOTE | 2020-03-04 22:15 | NUR ---
EARLIER ZOFRAN INEFFECTIVE PER PT. PT REFUSING SCHEDULED MEDS AND GINGERALE AT THIS TIME. DENIES ANY OTHER NEEDS. RN OFFERED TO CALL DR FOR ADDITIONAL ANTI-NAUSEA MEDICATION. STATES SHE WILL LET RN KNOW IF ADDITIONAL NAUSEA MEDICATION IS NEEDED. WILL MONITOR.
--- NOTE | 2020-03-04 23:19 | NUR ---
NOTIFIED OF PT REFUSING COLO PREP DUE TO NAUSEA.
[2020-03-05] VITALS: BP 124/73
--- NOTE | 2020-03-05 03:26 | NUR ---
IV MORPHINE GIVEN PER ONE TIME ORDER FOR C/O RLQ ABD PAIN RATED 10/10. IV PHENERGAN INFUSION INITIATED PER ONE TIME ORDER FOR C/O NAUSEA. WILL MONITOR EFFECTIVENESS. CALL LIGHT IN REACH.
--- NOTE | 2020-03-05 04:20 | NUR ---
EARLIER MEDS APPEAR EFFECTIVE. PT ASLEEP IN BED. NO S/S OF DISTRESS NOTED. WILL MONITOR. CALL LIGHT IN REACH.
--- NOTE | 2020-03-05 06:45 | NUR ---
TAP WATER ENEMA GIVEN PER ORDER. PT RUNNING CLEAR/YELLOW. TOLERATED WELL.
[2020-03-05 06:54] LABS: BASO # 0.1 10*3/uL (0.0-0.1); BASO % 0.5 % (0.0-1.0); EOS % 0.3 % (1.0-4.0); HEMATOCRIT 47.9 % (37.0-47.0); LYMPH # 2.1 10*3/uL (1.3-4.4); LYMPH % 16.3 % (27.0-41.0); MEAN CELL VOLUME 89.5 fl (81.0-99.0); MEAN CORPUSCULAR HGB 29.2 pg (27.0-31.0); MEAN CORPUSCULAR HGB CONC 32.6 g/dl (33.0-37.0); MEAN PLATELET VOLUME 10.2 fl (9.6-12.3); MONO # 1.1 10*3/uL (0.1-1.0); MONO % 8.3 % (3.0-9.0); NEUT # 9.3 10*3/uL (2.3-7.9); NEUT % 73.4 % (47.0-73.0); PLATELET COUNT AUTOMATED 362 10*3/uL (130-400); RED BLOOD COUNT 5.35 10*6/uL (4.10-5.10); RED CELL DISTRI WIDTH 13.8 % (0-14.5); WHITE BLOOD COUNT 12.7 10*3/uL (4.8-10.8)
[2020-03-05 07:09] LABS: ALBUMIN 2.3 gm/dl (3.1-4.5); ALKALINE PHOSPHATASE 60 U/L (45-117); BUN 14 mg/dl (7-24); CHLORIDE 110 mmol/L (98-107); CREATININE 0.62 mg/dL (0.55-1.02); POTASSIUM 3.7 mmol/L (3.5-5.1); SGOT/AST 12 IU/L (3-35); SGPT/ALT 14 U/L (12-78); SODIUM 140 mmol/L (136-145); TOTAL PROTEIN 5.5 gm/dL (6.4-8.2)
--- NOTE | 2020-03-05 09:27 | NUR ---
Attempted to reach patient via phone with no success. Will try again at a later time.
[2020-03-05 12:00] VITALS: BP 111/63
[2020-03-05] MEDS ORDERED: METOPROLOL TART50 M1 PO (13:31)
[2020-03-05] MEDS ORDERED: FLAGYL500 MG PO ×2 (13:31)
[2020-03-05] MEDS ORDERED: Carafate1 GM PO (13:31)
[2020-03-05] MEDS ORDERED: PROTONIX40 M1 IV ×2 (13:31)
[2020-03-05] MEDS ORDERED: ELIQUIS5 M1 PO (13:31)
[2020-03-05 16:00] VITALS: BP 119/67
--- NOTE | 2020-03-05 20:04 | NUR ---
PATIENT OFF FLOOR IN SURGERY AT THIS TIME.
[2020-03-05 21:34] VITALS: BP 129/63
[2020-03-05 21:49] VITALS: BP 129/64
[2020-03-05 22:04] VITALS: BP 132/73
--- NOTE | 2020-03-05 22:30 | NUR ---
PATIENT RETURNED FROM SURGERY. NEW ORDERS OBTAINED FROM DR. WILSON. PATIENT IN ROOM WITH NO SIGNS OR SYMPTOMS OF DISTRESS NOTED. WILL CONTINUE TO MONITOR. CALL LIGHT IN REACH.
[2020-03-06] VITALS: BP 122/57
--- NOTE | 2020-03-06 07:10 | NUR ---
REPORT RECEIVED. PT LYING IN BED. STATES SHE IS NAUSEOUS. WILL MEDICATE PT.
[2020-03-06 07:22] LABS: BASO # 0.1 10*3/uL (0.0-0.1); BASO % 0.5 % (0.0-1.0); EOS # 0.1 10*3/uL (0.0-0.4); EOS % 0.5 % (1.0-4.0); HEMATOCRIT 46.4 % (37.0-47.0); LYMPH # 1.5 10*3/uL (1.3-4.4); LYMPH % 14.7 % (27.0-41.0); MEAN CELL VOLUME 89.4 fl (81.0-99.0); MEAN CORPUSCULAR HGB 29.3 pg (27.0-31.0); MEAN CORPUSCULAR HGB CONC 32.8 g/dl (33.0-37.0); MEAN PLATELET VOLUME 10.3 fl (9.6-12.3); NEUT # 7.5 10*3/uL (2.3-7.9); NEUT % 72.7 % (47.0-73.0); PLATELET COUNT AUTOMATED 394 10*3/uL (130-400); RED BLOOD COUNT 5.19 10*6/uL (4.10-5.10); WHITE BLOOD COUNT 10.4 10*3/uL (4.8-10.8)
[2020-03-06 07:53] LABS: BUN 12 mg/dl (7-24); CHLORIDE 110 mmol/L (98-107); CREATININE 0.58 mg/dL (0.55-1.02); SODIUM 140 mmol/L (136-145)
[2020-03-06 08:00] VITALS: BP 124/50
--- NOTE | 2020-03-06 08:44 | NUR ---
CM in to see patient. She states she feels awful. She continues to have diarrhea and is nauseated. She states she doesn't have an appetite and hasn't been eating. She has been drinking gingerale. Discussed home health care services and she declines. CM will continue to follow for any discharge planning needs. When medically stable she will be discharged to home.
[2020-03-06 12:00] VITALS: BP 115/60
[2020-03-06 16:00] VITALS: BP 117/77
[2020-03-06 20:00] VITALS: BP 112/72
[2020-03-07] VITALS: BP 123/70
[2020-03-07 12:00] VITALS: BP 132/52
[2020-03-07] MEDS ORDERED: PENTASA250 MG PO (13:20)
[2020-03-07] MEDS ORDERED: PROTONIX40 M1 PO (13:20)
[2020-03-07] MEDS ORDERED: METOCLOPRAM5 MG/1 ML PO (13:20)
[2020-03-07 14:17] LABS: BUN 12 mg/dl (7-24); CHLORIDE 114 mmol/L (98-107); CREATININE 0.65 mg/dL (0.55-1.02); POTASSIUM 3.9 mmol/L (3.5-5.1); SODIUM 140 mmol/L (136-145)
--- NOTE | 2020-03-07 17:00 | NUR ---
PT dc via wheelchair with belongings. Daughter to pickle water pump operator out front.
== END 2020-03-07 17:53 | disposition home or self-care (01) | DRG 871 ==
LOC: ED 17:27 → EDHOLD 21:35 → 5E 21:35
PROVIDERS: Emergency Medicine; Internal Medicine Nephrology; ADMIT Internal Medicine; ATTEND Internal Medicine
PROC: 0DB68ZX Excision of Stomach, Via Natural or Artificial Opening Endoscopic, Diagnostic (ICD-10-PCS; 2020-03-01)
PROC: 4A02XM4 Measurement of Cardiac Total Activity, External Approach (ICD-10-PCS; 2020-03-04)
PROC: 3E073KZ Introduction of Other Diagnostic Substance into Coronary Artery, Percutaneous Approach (ICD-10-PCS; 2020-03-04)
PROC: 0DBL8ZX Excision of Transverse Colon, Via Natural or Artificial Opening Endoscopic, Diagnostic (ICD-10-PCS; principal; 2020-03-05)
PROC: 0DBB8ZX Excision of Ileum, Via Natural or Artificial Opening Endoscopic, Diagnostic (ICD-10-PCS; 2020-03-05)
DX: A41.9 Sepsis, unspecified organism (principal); K22.6 Gastro-esophageal laceration-hemorrhage syndrome; K29.71 Gastritis, unspecified, with bleeding; K22.11 Ulcer of esophagus with bleeding; K29.81 Duodenitis with bleeding; K57.31 Diverticulosis of large intestine without perforation or abscess with bleeding; K21.01 Gastro-esophageal reflux disease with esophagitis, with bleeding; A09 Infectious gastroenteritis and colitis, unspecified; E87.2 Acidosis; I48.20 Chronic atrial fibrillation, unspecified; K50.00 Crohn's disease of small intestine without complications; I48.91 Unspecified atrial fibrillation; I10 Essential (primary) hypertension; E66.01 Morbid (severe) obesity due to excess calories; E87.8 Other disorders of electrolyte and fluid balance, not elsewhere classified; E11.65 Type 2 diabetes mellitus with hyperglycemia; E87.6 Hypokalemia; E83.42 Hypomagnesemia; E78.00 Pure hypercholesterolemia, unspecified; E78.5 Hyperlipidemia, unspecified; K44.9 Diaphragmatic hernia without obstruction or gangrene; Z20.828 Contact with and (suspected) exposure to other viral communicable diseases; Z91.013 Allergy to seafood; Z91.048 Other nonmedicinal substance allergy status; Z90.710 Acquired absence of both cervix and uterus; Z90.49 Acquired absence of other specified parts of digestive tract; Z82.49 Family history of ischemic heart disease and other diseases of the circulatory system; Z83.1 Family history of other infectious and parasitic diseases; Z79.01 Long term (current) use of anticoagulants; Z68.36 Body mass index [BMI] 36.0-36.9, adult

== ENCOUNTER → 2020-02-29 | Outpatient (CLI) | payer OTHER, MEDICAID ==
[~2020-02-29] MED LIST changes: +AVPAK AZITHROM250 M1 PO; +Carafate1 GM PO; +ELIQUIS5 M1 PO; +FLAGYL500 MG PO; +MECLIZINE HCL25 M2 PO; +METFORMIN HCL1000 M2 PO; +METOCLOPRAM5 MG/1 ML PO; +METOPROLOL TART50 M1 PO; +ONDANSETRON HYDR4 M1 PO; +PENTASA250 MG PO; +POTASSIUM CHLO10 ME4 PO; +PROTONIX40 M1 IV; +PROTONIX40 M1 PO; +TRADJENTA5 M1 PO; +VITAMIN B122500 MC1 PO; +VITAMIN D3125 MC1 PO
[2020-02-29 09:56] LABS: HEMATOCRIT 47.8 % (37.0-47.0); MEAN CELL VOLUME 90.9 fl (81.0-99.0); MEAN CORPUSCULAR HGB 29.1 pg (27.0-31.0); MEAN PLATELET VOLUME 11.3 fl (9.6-12.3); PLATELET COUNT AUTOMATED 283 10*3/uL (130-400); RED BLOOD COUNT 5.26 10*6/uL (4.10-5.10); RED CELL DISTRI WIDTH 12.7 % (0-14.5); WHITE BLOOD COUNT 13.6 10*3/uL (4.8-10.8)
[2020-02-29 10:23] LABS: BASOPHILS 2 % (0-1); PLATELET SUFFICIENCY NORMAL (NORMAL); TOTAL CELLS COUNTED 100 #CELLS
[2020-02-29 10:28] LABS: BUN 15 mg/dl (7-24); CHLORIDE 105 mmol/L (98-107); CREATININE 0.78 mg/dL (0.55-1.02); POTASSIUM 3.6 mmol/L (3.5-5.1); SGOT/AST 18 IU/L (3-35); SGPT/ALT 14 U/L (12-78); SODIUM 141 mmol/L (136-145)
[2020-02-29 10:31] LABS: ALKALINE PHOSPHATASE 68 U/L (45-117); TOTAL PROTEIN 6.5 gm/dL (6.4-8.2)
== END | disposition home or self-care (01) ==
LOC: LAB 04:41 → US 09:30
PROVIDERS: ATTEND Internal Medicine
DX: N20.0 Calculus of kidney (principal); K92.1 Melena

== ENCOUNTER 2020-03-11 18:09 | Inpatient (IN) | payer OTHER, MEDICAID ==
[~2020-03-11] VITALS: Ht 172.7 cm; Wt 79.5 kg
[~2020-03-11 18:09] MED LIST changes: +Carafate1 GM PO; +ELIQUIS5 M1 PO; +FLAGYL500 MG PO; +METOCLOPRAM5 MG/1 ML PO; +METOPROLOL TART50 M1 PO; +ONDANSETRON HYDR4 M1 PO; +PENTASA250 MG PO; +PROTONIX40 M1 IV; +PROTONIX40 M1 PO; +VITAMIN B122500 MC1 PO; +VITAMIN D3125 MC1 PO
[2020-03-11 19:20] VITALS: BP 88/38
[2020-03-11 19:32] LABS: HEMATOCRIT 39.9 % (37.0-47.0); MEAN CELL VOLUME 89.1 fl (81.0-99.0); MEAN CORPUSCULAR HGB 29.5 pg (27.0-31.0); MEAN CORPUSCULAR HGB CONC 33.1 g/dl (33.0-37.0); MEAN PLATELET VOLUME 10.3 fl (9.6-12.3); PLATELET COUNT AUTOMATED 484 10*3/uL (130-400); RED BLOOD COUNT 4.48 10*6/uL (4.10-5.10); RED CELL DISTRI WIDTH 14.6 % (0-14.5)
[2020-03-11 20:04] LABS: BURR CELLS MODERATE; PLATELET SUFFICIENCY HIGH (NORMAL); TOTAL CELLS COUNTED 100 #CELLS
[2020-03-11 20:11] LABS: ALBUMIN 1.7 gm/dl (3.1-4.5); CREATININE 2.41 mg/dL (0.55-1.02); POTASSIUM 3.4 mmol/L (3.5-5.1); TOTAL PROTEIN 3.9 gm/dL (6.4-8.2)
[2020-03-11 21:10] LABS: BILIRUBIN 2+ (Negative); BLOOD Trace-Intact (Negative); CLARITY Turbid (Clear); COLOR Orange (Yellow); GLUCOSE Trace (Negative); KETONE Negative (Negative); LEUKO ESTERASE 3+ (Negative); NITRITE Positive (Negative); SPECIFIC GRAVITY >= 1.030 (1.001-1.030); UROBILINOGEN 0.2 E.U./dl (0.0-1.0)
[2020-03-11 21:22] LABS: BACTERIA 3+; EPITHELIAL CELLS TNTC; WBC TNTC wbc/hpf (0-5)
[2020-03-11 23:55] VITALS: BP 60/41
[2020-03-12] VITALS (9 sets, daily range): BP systolic 80–114; BP diastolic 24–94
[2020-03-12 08:32] LABS: HEMATOCRIT 37.8 % (37.0-47.0); MEAN CELL VOLUME 89.2 fl (81.0-99.0); MEAN CORPUSCULAR HGB 29.2 pg (27.0-31.0); MEAN CORPUSCULAR HGB CONC 32.8 g/dl (33.0-37.0); PLATELET COUNT AUTOMATED 469 10*3/uL (130-400); RED BLOOD COUNT 4.24 10*6/uL (4.10-5.10); RED CELL DISTRI WIDTH 14.6 % (0-14.5); WHITE BLOOD COUNT 21.6 10*3/uL (4.8-10.8)
[2020-03-12 08:51] LABS: BURR CELLS FEW; PLATELET SUFFICIENCY HIGH (NORMAL); TOTAL CELLS COUNTED 100 #CELLS
[2020-03-12 09:07] LABS: ALBUMIN 1.6 gm/dl (3.1-4.5); CREATININE 2.93 mg/dL (0.55-1.02); POTASSIUM 3.7 mmol/L (3.5-5.1); TOTAL PROTEIN 3.9 gm/dL (6.4-8.2)
[2020-03-12 09:15] LABS: THYROID STIM HORMONE (HS) 1.76 uIU/ml (0.358-4.75)
[2020-03-12 10:09] LABS: VITAMIN D, 25-HYDROXY 60.8 ng/mL (30-100)
[2020-03-13 06:45] LABS: HEMATOCRIT 39.3 % (37.0-47.0); MEAN CELL VOLUME 90.6 fl (81.0-99.0); MEAN CORPUSCULAR HGB 29.5 pg (27.0-31.0); MEAN CORPUSCULAR HGB CONC 32.6 g/dl (33.0-37.0); MEAN PLATELET VOLUME 10.4 fl (9.6-12.3); PLATELET COUNT AUTOMATED 471 10*3/uL (130-400); RED BLOOD COUNT 4.34 10*6/uL (4.10-5.10); WHITE BLOOD COUNT 23.9 10*3/uL (4.8-10.8)
[2020-03-13 07:08] LABS: CREATININE 3.09 mg/dL (0.55-1.02); POTASSIUM 3.9 mmol/L (3.5-5.1)
[2020-03-13 07:42] LABS: PLATELET SUFFICIENCY HIGH (NORMAL); TOTAL CELLS COUNTED 100 #CELLS
[2020-03-13 09:05] VITALS: BP 80/36
[2020-03-13 12:00] VITALS: BP 90/32
[2020-03-13 16:08] VITALS: BP 101/48
[2020-03-13 20:00] VITALS: BP 80/42
[2020-03-14] VITALS: BP 78/36
[2020-03-14 07:22] LABS: MEAN CELL VOLUME 88.3 fl (81.0-99.0); MEAN CORPUSCULAR HGB 29.3 pg (27.0-31.0); MEAN CORPUSCULAR HGB CONC 33.2 g/dl (33.0-37.0); MEAN PLATELET VOLUME 10.5 fl (9.6-12.3); PLATELET COUNT AUTOMATED 414 10*3/uL (130-400); RED BLOOD COUNT 3.51 10*6/uL (4.10-5.10); WHITE BLOOD COUNT 19.8 10*3/uL (4.8-10.8)
[2020-03-14 07:36] LABS: CREATININE 2.75 mg/dL (0.55-1.02); TOTAL PROTEIN 4.1 gm/dL (6.4-8.2)
[2020-03-14 07:42] LABS: TOTAL CELLS COUNTED 100 #CELLS
[2020-03-14 07:43] LABS: BURR CELLS FEW; PLATELET SUFFICIENCY HIGH (NORMAL); POLYCHROMASIA SLIGHT
[2020-03-14 08:00] VITALS: BP 94/44
[2020-03-14 16:00] VITALS: BP 85/51
[2020-03-14 17:00] VITALS: BP 94/50
[2020-03-14 20:00] VITALS: BP 95/43
[2020-03-15] VITALS: BP 103/50
[2020-03-15 08:00] VITALS: BP 109/50
[2020-03-15 08:03] LABS: BASO % 0.2 % (0.0-1.0); EOS # 0.1 10*3/uL (0.0-0.4); EOS % 0.4 % (1.0-4.0); HEMATOCRIT 29.6 % (37.0-47.0); LYMPH # 1.4 10*3/uL (1.3-4.4); MEAN CELL VOLUME 88.9 fl (81.0-99.0); MEAN CORPUSCULAR HGB 29.7 pg (27.0-31.0); MEAN CORPUSCULAR HGB CONC 33.4 g/dl (33.0-37.0); MEAN PLATELET VOLUME 10.3 fl (9.6-12.3); MONO % 7.8 % (3.0-9.0); NEUT # 10.2 10*3/uL (2.3-7.9); NEUT % 78.4 % (47.0-73.0); PLATELET COUNT AUTOMATED 403 10*3/uL (130-400); RED BLOOD COUNT 3.33 10*6/uL (4.10-5.10); RED CELL DISTRI WIDTH 15.5 % (0-14.5)
[2020-03-15 08:16] LABS: ALBUMIN 2.7 gm/dl (3.1-4.5); CREATININE 1.88 mg/dL (0.55-1.02); POTASSIUM 3.3 mmol/L (3.5-5.1); TOTAL PROTEIN 4.7 gm/dL (6.4-8.2)
[2020-03-15 12:00] VITALS: BP 94/56
[2020-03-15 16:00] VITALS: BP 115/70
[2020-03-15 20:00] VITALS: BP 105/56
[2020-03-16] VITALS: BP 107/63
[2020-03-16 06:43] LABS: BASO % 0.4 % (0.0-1.0); EOS # 0.1 10*3/uL (0.0-0.4); EOS % 0.5 % (1.0-4.0); HEMATOCRIT 30.5 % (37.0-47.0); LYMPH # 1.3 10*3/uL (1.3-4.4); LYMPH % 11.7 % (27.0-41.0); MEAN CELL VOLUME 89.4 fl (81.0-99.0); MEAN CORPUSCULAR HGB 29.3 pg (27.0-31.0); MEAN CORPUSCULAR HGB CONC 32.8 g/dl (33.0-37.0); MEAN PLATELET VOLUME 10.4 fl (9.6-12.3); MONO # 1.1 10*3/uL (0.1-1.0); MONO % 10.1 % (3.0-9.0); NEUT # 8.1 10*3/uL (2.3-7.9); NEUT % 74.7 % (47.0-73.0); PLATELET COUNT AUTOMATED 416 10*3/uL (130-400); RED BLOOD COUNT 3.41 10*6/uL (4.10-5.10); RED CELL DISTRI WIDTH 15.7 % (0-14.5); WHITE BLOOD COUNT 10.9 10*3/uL (4.8-10.8)
[2020-03-16 07:03] LABS: ALBUMIN 3.2 gm/dl (3.1-4.5); CREATININE 1.22 mg/dL (0.55-1.02); POTASSIUM 3.2 mmol/L (3.5-5.1)
[2020-03-16 08:00] VITALS: BP 115/61
[2020-03-16 12:00] VITALS: BP 132/79
[2020-03-16 16:00] VITALS: BP 122/53
[2020-03-16 20:00] VITALS: BP 108/68
[2020-03-17] VITALS: BP 115/66
[2020-03-17 06:31] LABS: HEMATOCRIT 30.2 % (37.0-47.0); MEAN CELL VOLUME 89.1 fl (81.0-99.0); MEAN CORPUSCULAR HGB 29.8 pg (27.0-31.0); MEAN CORPUSCULAR HGB CONC 33.4 g/dl (33.0-37.0); MEAN PLATELET VOLUME 10.2 fl (9.6-12.3); PLATELET COUNT AUTOMATED 398 10*3/uL (130-400); RED BLOOD COUNT 3.39 10*6/uL (4.10-5.10); RED CELL DISTRI WIDTH 16.1 % (0-14.5); WHITE BLOOD COUNT 10.6 10*3/uL (4.8-10.8)
[2020-03-17 06:49] LABS: BUN 19 mg/dl (7-24); CHLORIDE 119 mmol/L (98-107); CREATININE 0.78 mg/dL (0.55-1.02); POTASSIUM 3.7 mmol/L (3.5-5.1); SODIUM 146 mmol/L (136-145)
[2020-03-17 07:10] LABS: TOTAL CELLS COUNTED 100 #CELLS
[2020-03-17 07:11] LABS: BURR CELLS FEW; OVALOCYTES FEW; PLATELET SUFFICIENCY NORMAL (NORMAL)
[2020-03-17 08:00] VITALS: BP 130/64
[2020-03-17 12:00] VITALS: BP 109/66
[2020-03-17 16:00] VITALS: BP 119/68
[2020-03-17 20:00] VITALS: BP 130/56
[2020-03-18] VITALS: BP 113/57
[2020-03-18 06:43] LABS: HEMATOCRIT 35.5 % (37.0-47.0); MEAN CELL VOLUME 90.1 fl (81.0-99.0); MEAN CORPUSCULAR HGB 29.2 pg (27.0-31.0); MEAN CORPUSCULAR HGB CONC 32.4 g/dl (33.0-37.0); MEAN PLATELET VOLUME 10.4 fl (9.6-12.3); PLATELET COUNT AUTOMATED 295 10*3/uL (130-400); RED BLOOD COUNT 3.94 10*6/uL (4.10-5.10)
[2020-03-18 06:55] LABS: BUN 16 mg/dl (7-24); CHLORIDE 119 mmol/L (98-107); CREATININE 0.86 mg/dL (0.55-1.02); POTASSIUM 3.9 mmol/L (3.5-5.1); SODIUM 146 mmol/L (136-145)
[2020-03-18 07:22] LABS: PLATELET SUFFICIENCY NORMAL (NORMAL); TOTAL CELLS COUNTED 100 #CELLS
[2020-03-18 08:00] VITALS: BP 123/74
[2020-03-18 12:00] VITALS: BP 120/64
[2020-03-18 16:06] VITALS: BP 113/51
[2020-03-18 20:00] VITALS: BP 109/68
[2020-03-19] VITALS: BP 109/54
[2020-03-19 06:32] LABS: HEMATOCRIT 33.5 % (37.0-47.0); MEAN CELL VOLUME 89.8 fl (81.0-99.0); MEAN CORPUSCULAR HGB 29.5 pg (27.0-31.0); MEAN CORPUSCULAR HGB CONC 32.8 g/dl (33.0-37.0); MEAN PLATELET VOLUME 9.9 fl (9.6-12.3); PLATELET COUNT AUTOMATED 361 10*3/uL (130-400); RED BLOOD COUNT 3.73 10*6/uL (4.10-5.10); RED CELL DISTRI WIDTH 17.1 % (0-14.5); WHITE BLOOD COUNT 11.6 10*3/uL (4.8-10.8)
[2020-03-19 07:04] LABS: BUN 12 mg/dl (7-24); CHLORIDE 115 mmol/L (98-107); CREATININE 0.77 mg/dL (0.55-1.02); POTASSIUM 3.7 mmol/L (3.5-5.1); SODIUM 146 mmol/L (136-145)
[2020-03-19 07:06] LABS: PLATELET SUFFICIENCY NORMAL (NORMAL); POLYCHROMASIA SLIGHT; TOTAL CELLS COUNTED 100 #CELLS
[2020-03-19 07:07] LABS: TARGET CELLS FEW
[2020-03-19 12:00] VITALS: BP 105/60
[2020-03-19 16:00] VITALS: BP 110/62
[2020-03-19 20:00] VITALS: BP 132/76
[2020-03-20] VITALS: BP 118/63
[2020-03-20 07:07] LABS: BUN 12 mg/dl (7-24); CHLORIDE 115 mmol/L (98-107); CREATININE 0.69 mg/dL (0.55-1.02); POTASSIUM 3.9 mmol/L (3.5-5.1); SODIUM 146 mmol/L (136-145)
[2020-03-20 08:00] VITALS: BP 128/63
[2020-03-20 08:08] LABS: HEMATOCRIT 33.6 % (37.0-47.0); MEAN CORPUSCULAR HGB 29.5 pg (27.0-31.0); MEAN CORPUSCULAR HGB CONC 31.5 g/dl (33.0-37.0); MEAN PLATELET VOLUME 10.3 fl (9.6-12.3); PLATELET COUNT AUTOMATED 372 10*3/uL (130-400); RED BLOOD COUNT 3.59 10*6/uL (4.10-5.10); RED CELL DISTRI WIDTH 17.4 % (0-14.5); WHITE BLOOD COUNT 10.1 10*3/uL (4.8-10.8)
[2020-03-20 08:14] LABS: MEAN CELL VOLUME 93.6 fl (81.0-99.0)
[2020-03-20 08:41] LABS: PLATELET SUFFICIENCY NORMAL (NORMAL); TOTAL CELLS COUNTED 100 #CELLS
[2020-03-20 12:00] VITALS: BP 107/45; BP 97/52
[2020-03-20 16:00] VITALS: BP 108/50
[2020-03-20 20:00] VITALS: BP 101/51
[2020-03-21] VITALS: BP 103/57
[2020-03-21 06:15] LABS: HEMATOCRIT 31.3 % (37.0-47.0); MEAN CELL VOLUME 93.4 fl (81.0-99.0); MEAN CORPUSCULAR HGB 29.3 pg (27.0-31.0); MEAN CORPUSCULAR HGB CONC 31.3 g/dl (33.0-37.0); MEAN PLATELET VOLUME 10.2 fl (9.6-12.3); PLATELET COUNT AUTOMATED 310 10*3/uL (130-400); RED BLOOD COUNT 3.35 10*6/uL (4.10-5.10); RED CELL DISTRI WIDTH 17.4 % (0-14.5); WHITE BLOOD COUNT 9.8 10*3/uL (4.8-10.8)
[2020-03-21 06:35] LABS: BUN 9 mg/dl (7-24); CHLORIDE 116 mmol/L (98-107); CREATININE 0.58 mg/dL (0.55-1.02); POTASSIUM 4.2 mmol/L (3.5-5.1); SODIUM 145 mmol/L (136-145)
[2020-03-21 07:11] LABS: PLATELET SUFFICIENCY NORMAL (NORMAL); TOTAL CELLS COUNTED 100 #CELLS
[2020-03-21 08:00] VITALS: BP 112/51
[2020-03-21 12:00] VITALS: BP 116/50
[2020-03-21 16:00] VITALS: BP 98/62
== END 2020-03-21 20:20 | disposition short-term general hospital (02) | DRG 871 ==
LOC: ED 18:09 → EDHOLD 21:46 → 5E 21:46
PROVIDERS: Hospitalist; Internal Medicine; Internal Medicine Nephrology; ADMIT Internal Medicine; ATTEND Internal Medicine
DX: A41.9 Sepsis, unspecified organism (principal); E43 Unspecified severe protein-calorie malnutrition; N17.0 Acute kidney failure with tubular necrosis; K22.6 Gastro-esophageal laceration-hemorrhage syndrome; N39.0 Urinary tract infection, site not specified; E87.2 Acidosis; N18.4 Chronic kidney disease, stage 4 (severe); K50.10 Crohn's disease of large intestine without complications; E87.0 Hyperosmolality and hypernatremia; J91.8 Pleural effusion in other conditions classified elsewhere; I13.0 Hypertensive heart and chronic kidney disease with heart failure and stage 1 through stage 4 chronic kidney disease, or unspecified chronic kidney disease; I50.30 Unspecified diastolic (congestive) heart failure; I48.19 Other persistent atrial fibrillation; K57.90 Diverticulosis of intestine, part unspecified, without perforation or abscess without bleeding; E11.65 Type 2 diabetes mellitus with hyperglycemia; D72.810 Lymphocytopenia; E87.8 Other disorders of electrolyte and fluid balance, not elsewhere classified; B37.9 Candidiasis, unspecified; E88.09 Other disorders of plasma-protein metabolism, not elsewhere classified; K12.1 Other forms of stomatitis; E83.42 Hypomagnesemia; E83.39 Other disorders of phosphorus metabolism; E87.6 Hypokalemia; E11.22 Type 2 diabetes mellitus with diabetic chronic kidney disease; Z82.49 Family history of ischemic heart disease and other diseases of the circulatory system; Z91.013 Allergy to seafood; Z91.048 Other nonmedicinal substance allergy status; Z90.49 Acquired absence of other specified parts of digestive tract; Z79.01 Long term (current) use of anticoagulants; Z91.040 Latex allergy status; Z68.35 Body mass index [BMI] 35.0-35.9, adult

== ENCOUNTER 2020-04-03 21:35 | Emergency (ER) | payer OTHER, MEDICAID ==
[~2020-04-03] VITALS: Ht 162.5 cm; Wt 90.7 kg
[2020-04-04 00:01] VITALS: BP 108/62
== END 2020-04-04 00:45 | disposition home or self-care (01) ==
LOC: ED 21:35
DX: S00.93XA Contusion of unspecified part of head, initial encounter (principal); Z91.013 Allergy to seafood; Z79.899 Other long term (current) drug therapy; W54.1XXA Struck by dog, initial encounter; Y93.89 Activity, other specified; Y92.89 Other specified places as the place of occurrence of the external cause; Y99.8 Other external cause status

== ENCOUNTER → 2020-05-13 | Outpatient (CLI) | payer OTHER, MEDICAID | END | disposition home or self-care (01) | LOC: CARD 00:08 | PROVIDERS: ATTEND Nurse Practitioner Family | DX: I44.4 Left anterior fascicular block (principal); J98.11 Atelectasis; J90 Pleural effusion, not elsewhere classified; I51.7 Cardiomegaly; I25.2 Old myocardial infarction; I12.9 Hypertensive chronic kidney disease with stage 1 through stage 4 chronic kidney disease, or unspecified chronic kidney disease; N18.1 Chronic kidney disease, stage 1; E11.22 Type 2 diabetes mellitus with diabetic chronic kidney disease; K57.90 Diverticulosis of intestine, part unspecified, without perforation or abscess without bleeding; R60.9 Edema, unspecified; I48.91 Unspecified atrial fibrillation; Z79.4 Long term (current) use of insulin ==

== ENCOUNTER 2020-08-27 17:28 | Inpatient (IN) | payer OTHER, MEDICAID ==
[~2020-08-27] VITALS: Ht 162.6 cm; Wt 89.0 kg
[2020-08-27 17:43] VITALS: BP 115/45
[2020-08-27 18:38] LABS: BASO # 0.1 10*3/uL (0.0-0.1); BASO % 0.6 % (0.0-1.0); EOS % 0.3 % (1.0-4.0); HEMATOCRIT 31.4 % (37.0-47.0); LYMPH # 2.6 10*3/uL (1.3-4.4); LYMPH % 29.6 % (27.0-41.0); MEAN CELL VOLUME 77.3 fl (81.0-99.0); MEAN CORPUSCULAR HGB 21.9 pg (27.0-31.0); MEAN CORPUSCULAR HGB CONC 28.3 g/dl (33.0-37.0); MEAN PLATELET VOLUME 11.5 fl (9.6-12.3); MONO # 1.1 10*3/uL (0.1-1.0); MONO % 13.1 % (3.0-9.0); NEUT # 4.9 10*3/uL (2.3-7.9); NEUT % 56.2 % (47.0-73.0); PLATELET COUNT AUTOMATED 340 10*3/uL (130-400); RED BLOOD COUNT 4.06 10*6/uL (4.10-5.10); RED CELL DISTRI WIDTH 18.1 % (0-14.5); WHITE BLOOD COUNT 8.7 10*3/uL (4.8-10.8)
[2020-08-27 19:27] LABS: ALBUMIN 3.3 gm/dl (3.1-4.5); ALKALINE PHOSPHATASE 80 U/L (45-117); BUN 21 mg/dl (7-24); CHLORIDE 110 mmol/L (98-107); CREATININE 0.66 mg/dL (0.55-1.02); LIPASE 116 U/L (73-393); POTASSIUM 4.2 mmol/L (3.5-5.1); SGOT/AST 21 IU/L (3-35); SGPT/ALT 19 U/L (12-78); SODIUM 141 mmol/L (136-145); TOTAL PROTEIN 6.7 gm/dL (6.4-8.2)
[2020-08-27 19:29] LABS: TROPONIN I < 0.015 ng/ml (<0.045)
[2020-08-27 21:52] LABS: BILIRUBIN Negative (Negative); BLOOD Negative (Negative); CLARITY Clear (Clear); COLOR Yellow (Yellow); GLUCOSE Negative (Negative); KETONE Negative (Negative); LEUKO ESTERASE Negative (Negative); NITRITE Negative (Negative); SPECIFIC GRAVITY >= 1.030 (1.001-1.030)
[2020-08-27 22:03] LABS: RBC 0-2 rbc/hpf (0-2)
[2020-08-28 01:45] VITALS: BP 108/55
[2020-08-28 01:54] VITALS: BP 108/55
[2020-08-28 06:17] LABS: ALBUMIN 3.3 gm/dl (3.1-4.5); ALKALINE PHOSPHATASE 81 U/L (45-117); BUN 18 mg/dl (7-24); CHLORIDE 108 mmol/L (98-107); CREATININE 0.66 mg/dL (0.55-1.02); SGOT/AST 17 IU/L (3-35); SGPT/ALT 17 U/L (12-78); SODIUM 141 mmol/L (136-145); TOTAL PROTEIN 6.8 gm/dL (6.4-8.2)
[2020-08-28 06:19] LABS: ACT PARTIAL THROMBO TIME 28.2 SECONDS (20.0-32.1); BASO % 0.5 % (0.0-1.0); EOS % 0.4 % (1.0-4.0); HEMATOCRIT 30.4 % (37.0-47.0); INTERNATIONAL NORM RATIO 1.4 (2.0-3.5); LYMPH # 2.2 10*3/uL (1.3-4.4); LYMPH % 28.5 % (27.0-41.0); MEAN CORPUSCULAR HGB 21.6 pg (27.0-31.0); MEAN CORPUSCULAR HGB CONC 27.3 g/dl (33.0-37.0); MEAN PLATELET VOLUME 10.9 fl (9.6-12.3); MONO % 12.6 % (3.0-9.0); NEUT # 4.5 10*3/uL (2.3-7.9); NEUT % 57.6 % (47.0-73.0); PLATELET COUNT AUTOMATED 286 10*3/uL (130-400); RED BLOOD COUNT 3.85 10*6/uL (4.10-5.10); RED CELL DISTRI WIDTH 17.7 % (0-14.5); WHITE BLOOD COUNT 7.8 10*3/uL (4.8-10.8)
[2020-08-28 07:17] LABS: VITAMIN D, 25-HYDROXY 90.3 ng/mL (30-100)
[2020-08-28 08:58] VITALS: BP 110/60
[2020-08-28 12:00] VITALS: BP 118/48
[2020-08-28] MEDS ORDERED: FUROSEMIDE20 M1 PO (15:49)
[2020-08-28] MEDS ORDERED: KLOR-CON M1010 ME1 PO (15:49)
[2020-08-28 16:00] VITALS: BP 104/42
[2020-08-28 20:07] VITALS: BP 124/41
[2020-08-29] VITALS: BP 103/52
[2020-08-29 06:01] LABS: BASO % 0.4 % (0.0-1.0); EOS # 0.1 10*3/uL (0.0-0.4); EOS % 1.2 % (1.0-4.0); HEMATOCRIT 28.6 % (37.0-47.0); LYMPH # 1.4 10*3/uL (1.3-4.4); LYMPH % 20.1 % (27.0-41.0); MEAN CORPUSCULAR HGB 22.1 pg (27.0-31.0); MEAN PLATELET VOLUME 11.3 fl (9.6-12.3); MONO # 1.1 10*3/uL (0.1-1.0); MONO % 15.5 % (3.0-9.0); NEUT # 4.3 10*3/uL (2.3-7.9); NEUT % 62.2 % (47.0-73.0); PLATELET COUNT AUTOMATED 259 10*3/uL (130-400); RED BLOOD COUNT 3.62 10*6/uL (4.10-5.10); RED CELL DISTRI WIDTH 17.8 % (0-14.5); WHITE BLOOD COUNT 6.9 10*3/uL (4.8-10.8)
[2020-08-29 08:00] VITALS: BP 121/63
[2020-08-29 12:00] VITALS: BP 115/41
[2020-08-29 14:00] VITALS: BP 115/41
[2020-08-29 16:00] VITALS: BP 114/45
[2020-08-29 20:00] VITALS: BP 109/48
[2020-08-30] VITALS: BP 116/47
[2020-08-30 05:57] LABS: BASO % 0.5 % (0.0-1.0); EOS # 0.1 10*3/uL (0.0-0.4); EOS % 0.8 % (1.0-4.0); HEMATOCRIT 27.3 % (37.0-47.0); LYMPH % 25.7 % (27.0-41.0); MEAN CELL VOLUME 77.1 fl (81.0-99.0); MEAN CORPUSCULAR HGB CONC 28.6 g/dl (33.0-37.0); MEAN PLATELET VOLUME 11.1 fl (9.6-12.3); MONO # 1.3 10*3/uL (0.1-1.0); MONO % 17.6 % (3.0-9.0); NEUT # 4.2 10*3/uL (2.3-7.9); PLATELET COUNT AUTOMATED 266 10*3/uL (130-400); RED BLOOD COUNT 3.54 10*6/uL (4.10-5.10); WHITE BLOOD COUNT 7.6 10*3/uL (4.8-10.8)
[2020-08-30 06:08] LABS: BUN 14 mg/dl (7-24); CHLORIDE 108 mmol/L (98-107); CREATININE 0.78 mg/dL (0.55-1.02); POTASSIUM 3.5 mmol/L (3.5-5.1); SODIUM 143 mmol/L (136-145)
[2020-08-30 08:00] VITALS: BP 106/56
[2020-08-30 12:00] VITALS: BP 103/41
[2020-08-30] MEDS ORDERED: FLAGYL500 MG PO (13:12)
[2020-08-30] MEDS ORDERED: CIPRO500 MG PO (13:12)
== END 2020-08-30 16:26 | disposition home or self-care (01) | DRG 378 ==
LOC: ED 17:28 → 5E 20:55 → EDHOLD 20:55 → 5E 08-28 01:37
PROVIDERS: Hospitalist; Internal Medicine Gastroenterology; Physician Assistant; ADMIT Internal Medicine; ATTEND Internal Medicine
DX: K57.33 Diverticulitis of large intestine without perforation or abscess with bleeding (principal); R17 Unspecified jaundice; I48.20 Chronic atrial fibrillation, unspecified; N18.4 Chronic kidney disease, stage 4 (severe); J90 Pleural effusion, not elsewhere classified; E55.9 Vitamin D deficiency, unspecified; D50.9 Iron deficiency anemia, unspecified; E53.8 Deficiency of other specified B group vitamins; E11.22 Type 2 diabetes mellitus with diabetic chronic kidney disease; I13.10 Hypertensive heart and chronic kidney disease without heart failure, with stage 1 through stage 4 chronic kidney disease, or unspecified chronic kidney disease; E66.01 Morbid (severe) obesity due to excess calories; I86.4 Gastric varices; R59.9 Enlarged lymph nodes, unspecified; K44.9 Diaphragmatic hernia without obstruction or gangrene; K21.9 Gastro-esophageal reflux disease without esophagitis; Z87.19 Personal history of other diseases of the digestive system; Z91.013 Allergy to seafood; Z91.048 Other nonmedicinal substance allergy status; Z79.01 Long term (current) use of anticoagulants; Z85.3 Personal history of malignant neoplasm of breast; Z90.49 Acquired absence of other specified parts of digestive tract; Z90.710 Acquired absence of both cervix and uterus; Z98.891 History of uterine scar from previous surgery; Z82.49 Family history of ischemic heart disease and other diseases of the circulatory system; Z83.6 Family history of other diseases of the respiratory system; Z79.899 Other long term (current) drug therapy; Z68.33 Body mass index [BMI] 33.0-33.9, adult

== ENCOUNTER 2021-03-01 15:36 | Emergency (ER) | payer OTHER, MEDICAID ==
[~2021-03-01] VITALS: Wt 79.7 kg
[~2021-03-01 15:36] MED LIST changes: +CARAFATE1 G1 PO; +CIPRO500 MG PO; +FUROSEMIDE20 M1 PO; +KLOR-CON M1010 ME1 PO; +LOPRESSOR25 MG PO; +MASON NATURAL325 MG PO; +MIDODRINE HCL5 M1 PO; +PROTONIX40 MG PO
[2021-03-01 16:33] LABS: BASO # 0.1 10*3/uL (0.0-0.1); BASO % 0.4 % (0.0-1.0); EOS % 0.2 % (1.0-4.0); HEMATOCRIT 30.8 % (37.0-47.0); LYMPH # 1.6 10*3/uL (1.3-4.4); LYMPH % 14.1 % (27.0-41.0); MEAN CELL VOLUME 74.8 fl (81.0-99.0); MEAN CORPUSCULAR HGB 20.6 pg (27.0-31.0); MEAN CORPUSCULAR HGB CONC 27.6 g/dl (33.0-37.0); MEAN PLATELET VOLUME 10.7 fl (9.6-12.3); MONO # 1.3 10*3/uL (0.1-1.0); NEUT # 8.5 10*3/uL (2.3-7.9); NEUT % 73.7 % (47.0-73.0); PLATELET COUNT AUTOMATED 235 10*3/uL (130-400); RED BLOOD COUNT 4.12 10*6/uL (4.10-5.10); RED CELL DISTRI WIDTH 28.6 % (0-14.5); WHITE BLOOD COUNT 11.6 10*3/uL (4.8-10.8)
[2021-03-01 16:42] LABS: ACT PARTIAL THROMBO TIME 27.6 SECONDS (20.0-32.1); INTERNATIONAL NORM RATIO 1.6 (2.0-3.5)
[2021-03-01 16:47] LABS: ALBUMIN 2.5 gm/dl (3.1-4.5); ALKALINE PHOSPHATASE 109 U/L (45-117); BUN 16 mg/dl (7-24); CHLORIDE 104 mmol/L (98-107); CREATININE 0.76 mg/dL (0.55-1.02); LIPASE 353 U/L (73-393); POTASSIUM 3.4 mmol/L (3.5-5.1); SGOT/AST 23 IU/L (3-35); SGPT/ALT 19 U/L (12-78); SODIUM 142 mmol/L (136-145); TOTAL PROTEIN 5.9 gm/dL (6.4-8.2)
[2021-03-01] MEDS ORDERED: MAGNESIUM OXID400 MG PO (18:15)
[2021-03-01 18:50] VITALS: BP 116/50
== END 2021-03-01 20:01 | disposition home or self-care (01) ==
LOC: ED 15:36
PROVIDERS: Physician Assistant
DX: E83.42 Hypomagnesemia (principal); Z91.013 Allergy to seafood; Z79.899 Other long term (current) drug therapy

== ENCOUNTER 2021-04-13 12:58 | Emergency (ER) | payer MEDICARE ==
[~2021-04-13] VITALS: Ht 162.5 cm; Wt 76.7 kg
[~2021-04-13 12:58] MED LIST changes: +MAGNESIUM OXID400 MG PO
[2021-04-13 13:08] VITALS: BP 110/59
[2021-04-13 13:57] LABS: BASO % 0.6 % (0.0-1.0); EOS % 0.3 % (1.0-4.0); LYMPH # 0.9 10*3/uL (1.3-4.4); LYMPH % 13.3 % (27.0-41.0); MEAN CELL VOLUME 78.2 fl (81.0-99.0); MEAN CORPUSCULAR HGB 22.1 pg (27.0-31.0); MEAN CORPUSCULAR HGB CONC 28.3 g/dl (33.0-37.0); MEAN PLATELET VOLUME 9.6 fl (9.6-12.3); MONO # 0.6 10*3/uL (0.1-1.0); MONO % 8.7 % (3.0-9.0); NEUT # 5.3 10*3/uL (2.3-7.9); NEUT % 76.4 % (47.0-73.0); PLATELET COUNT AUTOMATED 317 10*3/uL (130-400); RED BLOOD COUNT 3.71 10*6/uL (4.10-5.10); RED CELL DISTRI WIDTH 21.8 % (0-14.5); WHITE BLOOD COUNT 6.9 10*3/uL (4.8-10.8)
[2021-04-13 14:06] LABS: ACT PARTIAL THROMBO TIME 27.7 SECONDS (20.0-32.1); INTERNATIONAL NORM RATIO 1.3 (2.0-3.5)
[2021-04-13 14:08] LABS: ALKALINE PHOSPHATASE 195 U/L (45-117); BUN 20 mg/dl (7-24); CHLORIDE 103 mmol/L (98-107); CREATININE 0.73 mg/dL (0.55-1.02); LIPASE 128 U/L (73-393); POTASSIUM 4.3 mmol/L (3.5-5.1); SGOT/AST 40 IU/L (3-35); SGPT/ALT 24 U/L (12-78); SODIUM 135 mmol/L (136-145); TOTAL PROTEIN 7.2 gm/dL (6.4-8.2)
== END 2021-04-13 16:34 | disposition home or self-care (01) ==
LOC: ED 12:58
PROVIDERS: Physician Assistant
DX: S00.93XA Contusion of unspecified part of head, initial encounter (principal); E11.9 Type 2 diabetes mellitus without complications; I48.91 Unspecified atrial fibrillation; Z91.013 Allergy to seafood; Z79.899 Other long term (current) drug therapy; Z98.890 Other specified postprocedural states; Z90.49 Acquired absence of other specified parts of digestive tract; Z90.710 Acquired absence of both cervix and uterus; W18.39XA Other fall on same level, initial encounter; Y93.89 Activity, other specified; Y92.89 Other specified places as the place of occurrence of the external cause; Y99.8 Other external cause status

== ENCOUNTER 2021-04-24 11:59 | Inpatient (IN) | payer MEDICARE ==
[2021-04-24] VITALS (40 sets, daily range): BP systolic 58–104; BP diastolic 00–48
[~2021-04-24] VITALS: Ht 160 cm; Wt 77.6 kg
[2021-04-24] MEDS ORDERED: FERROUS FUMARA324 MG PO (12:25)
[2021-04-24 12:26] LABS: HEMATOCRIT 27.7 % (37.0-47.0); MEAN CELL VOLUME 83.9 fl (81.0-99.0); MEAN CORPUSCULAR HGB 23.6 pg (27.0-31.0); MEAN CORPUSCULAR HGB CONC 28.2 g/dl (33.0-37.0); MEAN PLATELET VOLUME 9.8 fl (9.6-12.3); NUCLEATED RED BLOOD CELL 0.1 10*3/uL (0.0-0.0); NUCLEATED RED BLOOD CELL 0.2 % (0.0-0.0); PLATELET COUNT AUTOMATED 255 10*3/uL (130-400); RED CELL DISTRI WIDTH 24.3 % (0-14.5); WHITE BLOOD COUNT 24.8 10*3/uL (4.8-10.8)
[2021-04-24] MEDS ORDERED: FUROSEMIDE20 M1 PO (12:28)
[2021-04-24 12:30] LABS: MANUAL DIFF REFLEX YES
[2021-04-24] MEDS ORDERED: MECLIZINE HCL25 M2 PO (12:37)
[2021-04-24 12:39] LABS: ACT PARTIAL THROMBO TIME 37.5 SECONDS (20.0-32.1); INTERNATIONAL NORM RATIO 1.5 (2.0-3.5)
[2021-04-24 12:43] LABS: ALBUMIN 2.5 gm/dl (3.1-4.5); CREATININE 1.44 mg/dL (0.55-1.02); POTASSIUM 4.5 mmol/L (3.5-5.1); TOTAL PROTEIN 6.1 gm/dL (6.4-8.2)
[2021-04-24 12:56] LABS: TOTAL CELLS COUNTED 100 #CELLS
[2021-04-24 12:57] LABS: OVALOCYTES FEW; PLATELET SUFFICIENCY NORMAL (NORMAL); POLYCHROMASIA SLIGHT; SCHISTOCYTES FEW; TARGET CELLS FEW
[2021-04-24 19:54] LABS: BILIRUBIN 1+ (Negative); BLOOD 2+ (Negative); CLARITY Turbid (Clear); COLOR Dark Yellow (Yellow); GLUCOSE Negative (Negative); KETONE Trace (Negative); LEUKO ESTERASE 1+ (Negative); NITRITE Negative (Negative); SPECIFIC GRAVITY >= 1.030 (1.001-1.030)
[2021-04-24 20:03] LABS: BACTERIA 4+; WBC 41-50 wbc/hpf (0-5)
[2021-04-25] VITALS (97 sets, daily range): BP systolic 90–143; BP diastolic 34–69
[2021-04-25 05:24] LABS: ALBUMIN 2.4 gm/dl (3.1-4.5); CREATININE 1.36 mg/dL (0.55-1.02); POTASSIUM 4.3 mmol/L (3.5-5.1); TOTAL PROTEIN 6.1 gm/dL (6.4-8.2)
[2021-04-25 05:45] LABS: FREE T4 1.18 ng/dl (0.76-1.46)
[2021-04-25 05:51] LABS: THYROID STIM HORMONE (HS) 0.728 uIU/ml (0.358-4.75)
[2021-04-25 06:23] LABS: HEMATOCRIT 29.2 % (37.0-47.0); MEAN CELL VOLUME 84.9 fl (81.0-99.0); MEAN CORPUSCULAR HGB 23.8 pg (27.0-31.0); MEAN CORPUSCULAR HGB CONC 28.1 g/dl (33.0-37.0); MEAN PLATELET VOLUME 11.3 fl (9.6-12.3); NUCLEATED RED BLOOD CELL 0.2 % (0.0-0.0); PLATELET COUNT AUTOMATED 284 10*3/uL (130-400); RED BLOOD COUNT 3.44 10*6/uL (4.10-5.10); RED CELL DISTRI WIDTH 24.8 % (0-14.5)
[2021-04-25 06:26] LABS: MANUAL DIFF REFLEX YES
[2021-04-25 07:21] LABS: TOTAL CELLS COUNTED 100 #CELLS
[2021-04-25 07:22] LABS: PLATELET SUFFICIENCY NORMAL (NORMAL)
[2021-04-26] VITALS (14 sets, daily range): BP systolic 99–112; BP diastolic 38–63
[2021-04-26 06:13] LABS: ALBUMIN 2.3 gm/dl (3.1-4.5); ALKALINE PHOSPHATASE 119 U/L (45-117); BASO % 0.1 % (0.0-1.0); CHLORIDE 109 mmol/L (98-107); CREATININE 0.73 mg/dL (0.55-1.02); EOS % 0.2 % (1.0-4.0); HEMATOCRIT 27.5 % (37.0-47.0); LYMPH # 0.7 10*3/uL (1.3-4.4); LYMPH % 5.5 % (27.0-41.0); MEAN CELL VOLUME 83.6 fl (81.0-99.0); MEAN CORPUSCULAR HGB 23.7 pg (27.0-31.0); MEAN CORPUSCULAR HGB CONC 28.4 g/dl (33.0-37.0); MEAN PLATELET VOLUME 11.3 fl (9.6-12.3); MONO % 7.5 % (3.0-9.0); NEUT # 11.7 10*3/uL (2.3-7.9); NEUT % 86.2 % (47.0-73.0); NUCLEATED RED BLOOD CELL 0.1 % (0.0-0.0); PLATELET COUNT AUTOMATED 230 10*3/uL (130-400); POTASSIUM 4.1 mmol/L (3.5-5.1); RED BLOOD COUNT 3.29 10*6/uL (4.10-5.10); SGOT/AST 29 IU/L (3-35); SGPT/ALT 24 U/L (12-78); SODIUM 139 mmol/L (136-145); TOTAL PROTEIN 5.7 gm/dL (6.4-8.2); WHITE BLOOD COUNT 13.6 10*3/uL (4.8-10.8)
[2021-04-26 06:22] LABS: BUN 27 mg/dl (7-24)
[2021-04-27] VITALS: BP 113/58
[2021-04-27 04:00] VITALS: BP 110/59
[2021-04-27 05:56] LABS: ALBUMIN 2.3 gm/dl (3.1-4.5); BUN 21 mg/dl (7-24); CHLORIDE 107 mmol/L (98-107); SGOT/AST 24 IU/L (3-35); SGPT/ALT 20 U/L (12-78); SODIUM 139 mmol/L (136-145)
[2021-04-27 05:58] LABS: ALKALINE PHOSPHATASE 145 U/L (45-117); TOTAL PROTEIN 5.6 gm/dL (6.4-8.2)
[2021-04-27 06:08] LABS: BASO % 0.4 % (0.0-1.0); EOS # 0.1 10*3/uL (0.0-0.4); EOS % 0.7 % (1.0-4.0); HEMATOCRIT 27.4 % (37.0-47.0); LYMPH # 1.3 10*3/uL (1.3-4.4); MEAN CELL VOLUME 82.3 fl (81.0-99.0); MEAN CORPUSCULAR HGB 23.7 pg (27.0-31.0); MEAN CORPUSCULAR HGB CONC 28.8 g/dl (33.0-37.0); MEAN PLATELET VOLUME 11.1 fl (9.6-12.3); MONO # 0.8 10*3/uL (0.1-1.0); MONO % 7.5 % (3.0-9.0); NEUT # 7.8 10*3/uL (2.3-7.9); NEUT % 77.7 % (47.0-73.0); PLATELET COUNT AUTOMATED 236 10*3/uL (130-400); RED BLOOD COUNT 3.33 10*6/uL (4.10-5.10); RED CELL DISTRI WIDTH 25.5 % (0-14.5); WHITE BLOOD COUNT 10.1 10*3/uL (4.8-10.8)
[2021-04-27 08:00] VITALS: BP 97/61
[2021-04-27 12:00] VITALS: BP 112/67
[2021-04-27 16:00] VITALS: BP 126/55
[2021-04-27 20:00] VITALS: BP 96/50
[2021-04-28] VITALS: BP 102/56
[2021-04-28 08:00] VITALS: BP 122/55
[2021-04-28 16:00] VITALS: BP 141/81
[2021-04-29] VITALS: BP 128/70
[2021-04-29 06:11] LABS: CHLORIDE 106 mmol/L (98-107); POTASSIUM 3.7 mmol/L (3.5-5.1); SODIUM 141 mmol/L (136-145)
[2021-04-29 06:14] LABS: HEMATOCRIT 29.4 % (37.0-47.0); MEAN CELL VOLUME 82.8 fl (81.0-99.0); MEAN CORPUSCULAR HGB 23.7 pg (27.0-31.0); MEAN CORPUSCULAR HGB CONC 28.6 g/dl (33.0-37.0); MEAN PLATELET VOLUME 10.3 fl (9.6-12.3); PLATELET COUNT AUTOMATED 255 10*3/uL (130-400); RED BLOOD COUNT 3.55 10*6/uL (4.10-5.10); RED CELL DISTRI WIDTH 25.4 % (0-14.5); WHITE BLOOD COUNT 8.6 10*3/uL (4.8-10.8)
[2021-04-29 06:28] LABS: ALBUMIN 2.5 gm/dl (3.1-4.5); ALKALINE PHOSPHATASE 152 U/L (45-117); BUN 12 mg/dl (7-24); CREATININE 0.43 mg/dL (0.55-1.02); SGOT/AST 21 IU/L (3-35); SGPT/ALT 18 U/L (12-78); TOTAL PROTEIN 5.8 gm/dL (6.4-8.2)
[2021-04-29 06:45] LABS: MANUAL DIFF REFLEX YES
[2021-04-29 07:15] LABS: BASOPHILS 1 % (0-1); OVALOCYTES FEW; PLATELET SUFFICIENCY NORMAL (NORMAL); POLYCHROMASIA SLIGHT; SCHISTOCYTES FEW; TARGET CELLS FEW; TOTAL CELLS COUNTED 100 #CELLS
[2021-04-29 07:16] LABS: TOXIC GRANULATION SLIGHT
[2021-04-29 08:00] VITALS: BP 117/53
[2021-04-29 16:00] VITALS: BP 131/62
[2021-04-29 20:00] VITALS: BP 121/59
[2021-04-30] VITALS: BP 139/69
[2021-04-30 06:13] LABS: ALBUMIN 2.4 gm/dl (3.1-4.5); BUN 12 mg/dl (7-24); CHLORIDE 109 mmol/L (98-107); CREATININE 0.56 mg/dL (0.55-1.02); POTASSIUM 3.7 mmol/L (3.5-5.1); SGOT/AST 23 IU/L (3-35); SGPT/ALT 18 U/L (12-78); SODIUM 142 mmol/L (136-145)
[2021-04-30 06:15] LABS: ALKALINE PHOSPHATASE 167 U/L (45-117); TOTAL PROTEIN 5.8 gm/dL (6.4-8.2)
[2021-04-30 06:45] LABS: HEMATOCRIT 30.3 % (37.0-47.0); MEAN CELL VOLUME 82.8 fl (81.0-99.0); MEAN CORPUSCULAR HGB CONC 27.7 g/dl (33.0-37.0); MEAN PLATELET VOLUME 10.9 fl (9.6-12.3); NUCLEATED RED BLOOD CELL 0.2 % (0.0-0.0); PLATELET COUNT AUTOMATED 312 10*3/uL (130-400); RED BLOOD COUNT 3.66 10*6/uL (4.10-5.10); RED CELL DISTRI WIDTH 25.5 % (0-14.5); WHITE BLOOD COUNT 8.6 10*3/uL (4.8-10.8)
[2021-04-30 06:49] LABS: MANUAL DIFF REFLEX YES
[2021-04-30 07:54] LABS: OVALOCYTES FEW; PLATELET SUFFICIENCY NORMAL (NORMAL); POLYCHROMASIA SLIGHT; TARGET CELLS FEW; TOTAL CELLS COUNTED 100 #CELLS
[2021-04-30 08:00] VITALS: BP 126/62
[2021-04-30] MEDS ORDERED: AUGMENTIN 875-875 MG PO (11:37)
[2021-04-30 12:00] VITALS: BP 120/70
[2021-04-30 16:00] VITALS: BP 134/68
== END 2021-04-30 17:13 | disposition home health service (06) | DRG 871 ==
LOC: ED 11:59 → EDHOLD 13:43 → ICCU 13:43 → 4E 04-29 17:58
PROVIDERS: Emergency Medicine; Internal Medicine; ADMIT Student in an Organized Health Care Education/Training Program; ATTEND Student in an Organized Health Care Education/Training Program
PROC: 02HV33Z Insertion of Infusion Device into Superior Vena Cava, Percutaneous Approach (ICD-10-PCS; principal; 2021-04-24)
PROC: B548ZZA Ultrasonography of Superior Vena Cava, Guidance (ICD-10-PCS; 2021-04-24)
DX: A41.9 Sepsis, unspecified organism (principal); N17.0 Acute kidney failure with tubular necrosis; E43 Unspecified severe protein-calorie malnutrition; R65.21 Severe sepsis with septic shock; I50.32 Chronic diastolic (congestive) heart failure; K57.32 Diverticulitis of large intestine without perforation or abscess without bleeding; E86.0 Dehydration; K52.9 Noninfective gastroenteritis and colitis, unspecified; E86.1 Hypovolemia; I95.89 Other hypotension; D64.9 Anemia, unspecified; E87.8 Other disorders of electrolyte and fluid balance, not elsewhere classified; E11.9 Type 2 diabetes mellitus without complications; I11.0 Hypertensive heart disease with heart failure; E66.01 Morbid (severe) obesity due to excess calories; E53.8 Deficiency of other specified B group vitamins; E55.9 Vitamin D deficiency, unspecified; I48.0 Paroxysmal atrial fibrillation; Z91.013 Allergy to seafood; Z88.8 Allergy status to other drugs, medicaments and biological substances; Z82.49 Family history of ischemic heart disease and other diseases of the circulatory system; Z90.710 Acquired absence of both cervix and uterus; Z98.891 History of uterine scar from previous surgery; Z90.49 Acquired absence of other specified parts of digestive tract; Z79.899 Other long term (current) drug therapy

== ENCOUNTER → 2021-09-12 | Outpatient (CLI) | payer OTHER ==
[~2021-09-12] MED LIST changes: +AUGMENTIN 875-875 MG PO; +FERROUS FUMARA324 MG PO
[2021-09-12 08:48] LABS: BASO % 0.5 % (0.0-1.0); EOS % 0.2 % (1.0-4.0); HEMATOCRIT 38.7 % (37.0-47.0); LYMPH % 16.8 % (27.0-41.0); MEAN CELL VOLUME 93.3 fl (81.0-99.0); MEAN PLATELET VOLUME 10.6 fl (9.6-12.3); MONO # 0.9 10*3/uL (0.1-1.0); MONO % 15.4 % (3.0-9.0); NEUT # 3.9 10*3/uL (2.3-7.9); NEUT % 66.8 % (47.0-73.0); PLATELET COUNT AUTOMATED 205 10*3/uL (130-400); RED BLOOD COUNT 4.15 10*6/uL (4.10-5.10); RED CELL DISTRI WIDTH 19.9 % (0-14.5); WHITE BLOOD COUNT 5.9 10*3/uL (4.8-10.8)
[2021-09-12 09:02] LABS: IRON 40 ug/dL (50-170); TOTAL IRON BINDING CAPACITY 334 ug/dl (250-450)
== END | disposition home or self-care (01) ==
LOC: LAB 03:27
PROVIDERS: ATTEND Internal Medicine
DX: M19.072 Primary osteoarthritis, left ankle and foot (principal); M79.9 Soft tissue disorder, unspecified; M25.475 Effusion, left foot; D63.8 Anemia in other chronic diseases classified elsewhere; D50.0 Iron deficiency anemia secondary to blood loss (chronic)

== ENCOUNTER 2021-10-03 13:46 | Inpatient (IN) | payer OTHER ==
[~2021-10-03] VITALS: Ht 160 cm; Wt 93.9 kg
[2021-10-03] VITALS (10 sets, daily range): BP systolic 98–166; BP diastolic 35–68
[2021-10-03 14:30] LABS: BASO % 0.5 % (0.0-1.0); EOS % 0.2 % (1.0-4.0); HEMATOCRIT 46.3 % (37.0-47.0); LYMPH # 1.2 10*3/uL (1.3-4.4); LYMPH % 18.2 % (27.0-41.0); MEAN CELL VOLUME 95.1 fl (81.0-99.0); MEAN CORPUSCULAR HGB 28.3 pg (27.0-31.0); MEAN CORPUSCULAR HGB CONC 29.8 g/dl (33.0-37.0); MONO # 0.7 10*3/uL (0.1-1.0); MONO % 11.1 % (3.0-9.0); NEUT # 4.6 10*3/uL (2.3-7.9); NEUT % 69.5 % (47.0-73.0); PLATELET COUNT AUTOMATED 201 10*3/uL (130-400); RED BLOOD COUNT 4.87 10*6/uL (4.10-5.10); RED CELL DISTRI WIDTH 19.5 % (0-14.5); WHITE BLOOD COUNT 6.7 10*3/uL (4.8-10.8)
[2021-10-03 14:52] LABS: INTERNATIONAL NORM RATIO 2.1 (2.0-3.5)
[2021-10-03 14:54] LABS: ALKALINE PHOSPHATASE 174 U/L (45-117); BUN 19 mg/dl (7-24); CHLORIDE 104 mmol/L (98-107); POTASSIUM 4.8 mmol/L (3.5-5.1); SGOT/AST 41 IU/L (3-35); SGPT/ALT 21 U/L (12-78); SODIUM 137 mmol/L (136-145); TOTAL PROTEIN 6.6 gm/dL (6.4-8.2)
[2021-10-03 16:17] LABS: BILIRUBIN 2+ (Negative); BLOOD 3+ (Negative); CLARITY Cloudy (Clear); COLOR Dark Yellow (Yellow); GLUCOSE Negative (Negative); KETONE Trace (Negative); LEUKO ESTERASE Trace (Negative); NITRITE Negative (Negative); SPECIFIC GRAVITY 1.025 (1.001-1.030)
[2021-10-03 16:30] LABS: BACTERIA 2+; HYALINE CAST TNTC; RBC TNTC rbc/hpf (0-2)
[2021-10-03 16:49] LABS: ARTERIAL BLOOD GAS PO2 85.9 (80-90)
[2021-10-03 16:50] LABS: ABG BASE EXCESS -6.4 mmol/L (-2.0-2.0)
[2021-10-03 16:51] LABS: ARTERIAL BLOOD GAS PH 7.046 (7.35-7.45)
[2021-10-03] MEDS ORDERED: ONDANSETRON HYDR4 M1 PO (21:20)
[2021-10-03 21:37] LABS: ARTERIAL BLOOD GAS PH 7.415 (7.35-7.45); ARTERIAL BLOOD GAS PO2 127.4 (80-90)
[2021-10-04] VITALS (33 sets, daily range): BP systolic 58–114; BP diastolic 19–50
[2021-10-04 04:34] LABS: ABG BASE EXCESS -2.8 mmol/L (-2.0-2.0); ARTERIAL BLOOD GAS PH 7.377 (7.35-7.45); ARTERIAL BLOOD GAS PO2 111.5 (80-90)
[2021-10-04 05:25] LABS: ALKALINE PHOSPHATASE 161 U/L (45-117); BUN 23 mg/dl (7-24); CHLORIDE 104 mmol/L (98-107); CHOLESTEROL 88 mg/dL (<200); CREATININE 0.92 mg/dL (0.55-1.02); LDL CHOLESTEROL 29 mg/dL (9-159); POTASSIUM 4.4 mmol/L (3.5-5.1); SGOT/AST 58 IU/L (3-35); SGPT/ALT 28 U/L (12-78); SODIUM 140 mmol/L (136-145); TOTAL PROTEIN 5.7 gm/dL (6.4-8.2); TRIGLYCERIDES 106 mg/dl (<150)
[2021-10-04 06:17] LABS: ACT PARTIAL THROMBO TIME 34.2 SECONDS (20.0-32.1); INTERNATIONAL NORM RATIO 2.3 (2.0-3.5)
[2021-10-04 06:30] LABS: HEMATOCRIT 42.9 % (37.0-47.0); MEAN CELL VOLUME 92.7 fl (81.0-99.0); MEAN CORPUSCULAR HGB 28.5 pg (27.0-31.0); MEAN CORPUSCULAR HGB CONC 30.8 g/dl (33.0-37.0); MEAN PLATELET VOLUME 10.9 fl (9.6-12.3); PLATELET COUNT AUTOMATED 183 10*3/uL (130-400); RED BLOOD COUNT 4.63 10*6/uL (4.10-5.10); RED CELL DISTRI WIDTH 19.3 % (0-14.5); WHITE BLOOD COUNT 7.4 10*3/uL (4.8-10.8)
[2021-10-04 06:31] LABS: MANUAL DIFF REFLEX YES
[2021-10-04 06:39] LABS: BURR CELLS MODERATE; PLATELET SUFFICIENCY NORMAL (NORMAL); POLYCHROMASIA SLIGHT; TOTAL CELLS COUNTED 100 #CELLS
[2021-10-04 06:40] LABS: TARGET CELLS FEW
[2021-10-05] VITALS (20 sets, daily range): BP systolic 85–113; BP diastolic 26–53
[2021-10-05 05:23] LABS: CREATININE 1.59 mg/dL (0.55-1.02); POTASSIUM 4.3 mmol/L (3.5-5.1); TOTAL PROTEIN 5.4 gm/dL (6.4-8.2)
[2021-10-05 06:08] LABS: BASO % 0.1 % (0.0-1.0); EOS % 0.1 % (1.0-4.0); LYMPH # 0.4 10*3/uL (1.3-4.4); LYMPH % 3.8 % (27.0-41.0); MEAN CELL VOLUME 90.5 fl (81.0-99.0); MEAN CORPUSCULAR HGB 28.6 pg (27.0-31.0); MEAN CORPUSCULAR HGB CONC 31.6 g/dl (33.0-37.0); MEAN PLATELET VOLUME 10.6 fl (9.6-12.3); MONO # 0.7 10*3/uL (0.1-1.0); MONO % 6.4 % (3.0-9.0); NEUT # 9.9 10*3/uL (2.3-7.9); NUCLEATED RED BLOOD CELL 0.2 % (0.0-0.0); RED BLOOD COUNT 4.86 10*6/uL (4.10-5.10); RED CELL DISTRI WIDTH 20.1 % (0-14.5); WHITE BLOOD COUNT 11.2 10*3/uL (4.8-10.8)
[2021-10-05 06:13] LABS: PLATELET COUNT AUTOMATED 264 10*3/uL (130-400)
[2021-10-06] VITALS: BP 81/39
[2021-10-06 01:33] VITALS: BP 77/35
[2021-10-06 04:00] VITALS: BP 78/38
[2021-10-06 06:14] VITALS: BP 61/28
[2021-10-06 08:00] VITALS: BP 67/25
[2021-10-06 12:00] VITALS: BP 57/26
== END 2021-10-06 14:29 | disposition hospice, inpatient (51) | DRG 208 ==
LOC: ED 13:46 → EDHOLD 17:26 → ICCU 17:26 → EDHOLD 18:00 → ICCU 19:36
PROVIDERS: Internal Medicine; Internal Medicine Critical Care Medicine; Physician Assistant; Student in an Organized Health Care Education/Training Program; ADMIT Internal Medicine; ATTEND Internal Medicine
PROC: 5A1945Z Respiratory Ventilation, 24-96 Consecutive Hours (ICD-10-PCS; principal; 2021-10-03)
PROC: 0BH17EZ Insertion of Endotracheal Airway into Trachea, Via Natural or Artificial Opening (ICD-10-PCS; 2021-10-03)
DX: J96.02 Acute respiratory failure with hypercapnia (principal); N17.0 Acute kidney failure with tubular necrosis; I50.33 Acute on chronic diastolic (congestive) heart failure; E44.0 Moderate protein-calorie malnutrition; E87.2 Acidosis; E87.1 Hypo-osmolality and hyponatremia; J90 Pleural effusion, not elsewhere classified; Z20.822 Contact with and (suspected) exposure to COVID-19; E11.9 Type 2 diabetes mellitus without complications; I11.0 Hypertensive heart disease with heart failure; E66.01 Morbid (severe) obesity due to excess calories; R74.01 Elevation of levels of liver transaminase levels; E80.6 Other disorders of bilirubin metabolism; R31.9 Hematuria, unspecified; R82.2 Biliuria; I89.0 Lymphedema, not elsewhere classified; R60.1 Generalized edema; I95.9 Hypotension, unspecified; T68.XXXA Hypothermia, initial encounter; Z66 Do not resuscitate; Z51.5 Encounter for palliative care; Z88.8 Allergy status to other drugs, medicaments and biological substances; Z91.013 Allergy to seafood; Z90.710 Acquired absence of both cervix and uterus; Z90.49 Acquired absence of other specified parts of digestive tract; Z98.891 History of uterine scar from previous surgery; Z82.49 Family history of ischemic heart disease and other diseases of the circulatory system; Z85.3 Personal history of malignant neoplasm of breast; Z68.36 Body mass index [BMI] 36.0-36.9, adult

== ENCOUNTER 2021-10-06 14:31 | Inpatient (IN) | payer OTHER ==
[~2021-10-06] VITALS: Ht 160 cm; Wt 93.9 kg
[2021-10-06 14:45] VITALS: BP 66/31
[2021-10-06 16:00] VITALS: BP 66/32
[2021-10-06 20:00] VITALS: BP 66/26
[2021-10-07] VITALS: BP 81/32
[2021-10-07 08:00] VITALS: BP 81/29
[2021-10-07 12:00] VITALS: BP 80/30
[2021-10-07 16:00] VITALS: BP 78/32
[2021-10-07 20:00] VITALS: BP 72/36
== END 2021-10-08 00:11 | DRG 189 ==
LOC: 5E 14:31 → ICCU 14:31 → 5E 16:04
PROVIDERS: ADMIT Internal Medicine; ATTEND Internal Medicine
DX: J96.00 Acute respiratory failure, unspecified whether with hypoxia or hypercapnia (principal); N17.0 Acute kidney failure with tubular necrosis; K55.069 Acute infarction of intestine, part and extent unspecified; E44.0 Moderate protein-calorie malnutrition; K22.10 Ulcer of esophagus without bleeding; E87.2 Acidosis; E87.1 Hypo-osmolality and hyponatremia; I50.9 Heart failure, unspecified; K57.90 Diverticulosis of intestine, part unspecified, without perforation or abscess without bleeding; C50.919 Malignant neoplasm of unspecified site of unspecified female breast; K52.9 Noninfective gastroenteritis and colitis, unspecified; E80.6 Other disorders of bilirubin metabolism; R74.8 Abnormal levels of other serum enzymes; R74.01 Elevation of levels of liver transaminase levels; R82.71 Bacteriuria; R31.9 Hematuria, unspecified; R80.9 Proteinuria, unspecified; E11.69 Type 2 diabetes mellitus with other specified complication; E53.8 Deficiency of other specified B group vitamins; I11.0 Hypertensive heart disease with heart failure; E66.01 Morbid (severe) obesity due to excess calories; E61.1 Iron deficiency; E55.9 Vitamin D deficiency, unspecified; I48.91 Unspecified atrial fibrillation; R60.1 Generalized edema; R79.1 Abnormal coagulation profile; I89.0 Lymphedema, not elsewhere classified; Z66 Do not resuscitate; Z51.5 Encounter for palliative care; Z68.36 Body mass index [BMI] 36.0-36.9, adult